=== PATIENT | female | born 1935 | race Caucasian/White ===

== ENCOUNTER → 2016-12-23 | Outpatient (CLI) | payer BC ==
[2016-12-23 13:10] LABS: BLOOD UREA NITROGEN 11 mg/dl (7-18); BUN/CREATININE RATIO 11.3 (10-20); CALCIUM 9.7 mg/dl (8.5-10.1); CARBON DIOXIDE 24 mmol/L (21-32); CHLORIDE 105 mmol/L (98-107); CHOLESTEROL 162 mg/dl (0-200); GLUCOSE 100 mg/dl (70-99); POTASSIUM 3.9 mmol/L (3.5-5.1); SODIUM 139 mmol/L (136-145); TRIGLYCERIDES 187 mg/dl (0-150); VERY LOW DENSITY LIPOPROT CALC 37 mg/dl
[2016-12-23 13:13] LABS: CHOLESTEROL/HDL RATIO 2.9; HDL CHOLESTEROL 55 mg/dl
[2016-12-23 13:34] LABS: ESTIMATED AVERAGE GLUCOSE 126 mg/dl; HA1C FLAG Normal (Normal)
== END | disposition home or self-care (01) ==
LOC: C.LABSPEC 12:39
PROVIDERS: ATTEND Internal Medicine
DX: E78.5 Hyperlipidemia, unspecified (principal); R73.9 Hyperglycemia, unspecified; I10 Essential (primary) hypertension

== ENCOUNTER → 2017-05-19 | Outpatient (CLI) | payer BC | END | disposition home or self-care (01) | LOC: C.PATHSPEC 18:04 | PROVIDERS: ATTEND Internal Medicine | DX: C44.722 Squamous cell carcinoma of skin of right lower limb, including hip (principal); C44.712 Basal cell carcinoma of skin of right lower limb, including hip ==

== ENCOUNTER → 2017-09-08 | Outpatient (CLI) | payer BC | END | disposition home or self-care (01) | LOC: C.LABSPEC 14:47 | PROVIDERS: ATTEND Internal Medicine | DX: Z12.11 Encounter for screening for malignant neoplasm of colon (principal) ==

== ENCOUNTER → 2017-09-28 | Outpatient (CLI) | payer BC ==
[2017-09-28 14:21] LABS: ESTIMATED AVERAGE GLUCOSE 123 mg/dl; HA1C FLAG Normal (Normal)
[2017-09-28 14:33] LABS: ALT/SGPT 36 U/L (12-78); BLOOD UREA NITROGEN 6 mg/dl (7-18); BUN/CREATININE RATIO 6.8 (10-20); CALCIUM 9.3 mg/dl (8.5-10.1); CARBON DIOXIDE 25 mmol/L (21-32); CHLORIDE 107 mmol/L (98-107); CHOLESTEROL 135 mg/dl (0-200); CREATININE 0.88 mg/dl (0.60-1.20); GLUCOSE 88 mg/dl (70-99); POTASSIUM 3.7 mmol/L (3.5-5.1); SODIUM 139 mmol/L (136-145); TRIGLYCERIDES 199 mg/dl (0-150); VERY LOW DENSITY LIPOPROT CALC 40 mg/dl
[2017-09-28 14:35] LABS: ALB/GLOB RATIO 1.1 (0.9-2); ALKALINE PHOSPHATASE 134 U/L (45-117); AST/SGOT 28 U/L (15-37); CHOLESTEROL/HDL RATIO 2.5; HDL CHOLESTEROL 54 mg/dl
== END | disposition home or self-care (01) ==
LOC: C.LABSPEC 12:06
PROVIDERS: ATTEND Internal Medicine
DX: Z00.01 Encounter for general adult medical examination with abnormal findings (principal); R73.9 Hyperglycemia, unspecified; F32.9 Major depressive disorder, single episode, unspecified; E78.5 Hyperlipidemia, unspecified

== ENCOUNTER → 2017-12-02 | Outpatient (CLI) | payer BC ==
[2017-12-02 16:13] LABS: INFLUENZA B ANTIGEN Neg for Influ B (NEG)
== END ==
LOC: C.LABSPEC 15:06
PROVIDERS: ATTEND Internal Medicine
DX: B34.9 Viral infection, unspecified (principal)

== ENCOUNTER 2017-12-12 08:24 | Emergency (ER) | payer BC ==
[2017-12-12 08:32] VITALS: TEMP 36.5; Ht 152.4 cm
[2017-12-12 08:47] VITALS: O2SAT 99
[2017-12-12] MEDS ORDERED: LPT/40 PO (09:00)
[2017-12-12] MEDS ORDERED: METO25TA56 PO (09:00)
[2017-12-12] MEDS ORDERED: LORA-741 PO (09:00)
[2017-12-12] MEDS ORDERED: ASPI81TA28 PO (09:00)
[2017-12-12] MEDS ORDERED: VENL150T33 PO (09:00)
[2017-12-12] MEDS ORDERED: ONDANSETRON INJ 2 MG/ML 2 ML VIAL IV STA (09:03)
[2017-12-12] MEDS ORDERED: SODIUM CHLORIDE 0.9% 1000ML 1,000 ML IV STA (09:03)
--- NOTE | 2017-12-12 09:26 | DIAGNOSTIC IMAGING REPORT ---
CHEST ONE VIEW PORTABLE CLINICAL HISTORY: Fever. Sepsis. COMPARISON STUDY: Chest radiograph January 07, 2017. 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 There is no pneumothorax or pleural effusion. There is no evidence for pulmonary edema. Widening of the right paratracheal stripe is similar to prior exam and accentuated by patient rotation. This is likely due to normal vessels. Cardiac size is within normal limits. No consolidation is identified to suggest pneumonia. IMPRESSION: No acute cardiopulmonary findings. Electronically signed by: Hernandez Valadez M.D. 12/12/2017 9:24 AM Dictated Date/Time: 12/12/2017 9:23 AM
[2017-12-12 09:39] LABS: HEMATOCRIT 38.1 % (37-47); HEMOGLOBIN 13.5 g/dL (12.0-16.0); MEAN CELL VOLUME 87.2 fL (80-100); MEAN CORPUSCULAR HEMOGLOBIN 30.9 pg (25-34); MEAN CORPUSCULAR HGB CONC 35.4 g/dl (32-36); MEAN PLATELET VOLUME 10.3 fL (7.4-10.4); PLATELET COUNT 291 K/uL (130-400); RED CELL DISTRIBUTION WIDTH CV 13.4 % (11.5-14.5); RED CELL DISTRIBUTION WIDTH SD 42.7 fL (36.4-46.3); WHITE BLOOD COUNT 11.48 K/uL (4.8-10.8)
[2017-12-12 09:55] LABS: ALBUMIN 3.8 gm/dl (3.4-5.0); ALT/SGPT 55 U/L (12-78); BLOOD UREA NITROGEN 11 mg/dl (7-18); CALCIUM 9.4 mg/dl (8.5-10.1); CARBON DIOXIDE 22 mmol/L (21-32); CREATININE 0.96 mg/dl (0.60-1.20); GLUCOSE 180 mg/dl (70-99); LIPASE 143 U/L (73-393); POTASSIUM 3.6 mmol/L (3.5-5.1); SODIUM 138 mmol/L (136-145)
[2017-12-12 10:00] LABS: ALKALINE PHOSPHATASE 132 U/L (45-117); AST/SGOT 29 U/L (15-37); BASO % 0.2 %; BASO ABS # 0.02 K/uL (0-0.2); CKMB 1.4 ng/ml (0.5-3.6); EOS ABS # 0.12 K/uL (0-0.5); IG# 0.02 K/uL (0.00-0.02); LYMPH % 12.7 %; LYMPH ABS # 1.46 K/uL (1.2-3.4); MONO % 8.7 %; NEUT % 77.2 %; NEUT ABS # 8.86 K/uL (1.4-6.5); TOTAL PROTEIN 7.7 gm/dl (6.4-8.2)
[2017-12-12 10:01] LABS: INFLUENZA B ANTIGEN Neg for Influ B (NEG)
--- NOTE | 2017-12-12 10:46 | EMERGENCY ROOM VISIT NOTE ---
History Report prepared by Scribe: Kristen Dash Under the Supervision of: Dr. Luis Betts D.O. First contact with patient: 08:58 Chief Complaint: FLU LIKE SX Stated Complaint: SICK JUST HAD THE FLU History of Present Illness The patient is an 82 year old female who presents to the Emergency Room with complaints of persistent flu like symptoms for the past 1 week. She states she was diagnosed with the flu and treated with Tamiflu, which she finished this past Thursday. Last night she developed nausea, diarrhea and the chills. This morning, she experienced more diarrhea and weakness, and her son states when he got to her apartment, the heat was up to 83 and the patient was "bundled up", so he called EMS. The patient states the flu "took a lot out of her" and she still feels weak. She denies any recent vomiting and there has been no blood in her stool. 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 A total of 10 systems reviewed and were otherwise negative. Past Medical & Surgical Medical Problems: (1) Flu (2) Hyperlipidemia (3) Hypertension Social History Smoking Status: Never Smoker Alcohol Use: none Drug Use: none Marital Status: Housing Status: lives alone Occupation Status: retired Current/Historical Medications Scheduled Aspirin (Aspirin Ec), 81 MG PO DAILY Atorvastatin (Lipitor), 40 MG PO DAILY Metoprolol Tartrate (Lopressor) (Lopressor), 25 MG PO BID Venlafaxine Hcl (Venlafaxine Hcl Er), 1 TAB PO DAILY Scheduled PRN Lorazepam (Ativan), 0.5 MG PO Q6H PRN for Anxiety Allergies Coded Allergies: Latex1 -Allergic Contact Dermititis (Unverified Allergy, Intermediate, IRRITATION, 12/12/17) Uncoded Allergies: MEDS? (Allergy, Unknown, 12/01/02) N (Allergy, Unknown, 12/01/02) Physical Exam Vital Signs Date Time Temp Pulse Resp B/P (MAP) Pulse Ox O2 Delivery O2 Flow Rate FiO2 12/12/17 10:23 64 18 202/92 98 Room Air 12/12/17 09:24 59 18 185/91 99 Room Air 12/12/17 08:49 64 12/12/17 08:47 99 Room Air 12/12/17 08:32 36.5 65 18 187/82 97 Room Air Physical Exam CONSTITUTIONAL/VITAL SIGNS: Reviewed / noted above. GENERAL: Non-toxic in appearance. INTEGUMENTARY: Warm, dry, and [place]. HEAD: Normocephalic. EYES: without scleral icterus or trauma. ENT/OROPHARYNX: clear and moist. LYMPHADENOPATHY/NECK: Is supple without lymphadenopathy or meningismus. RESPIRATORY: Lungs clear and equal. CARDIOVASCULAR: Regular rate and rhythm. GI/ABDOMEN: Soft and nontender. No organomegaly or pulsatile mass. No rebound or guarding. Normal bowel sounds. EXTREMITIES: Warm and well perfused. BACK: No CVA tenderness. NEUROLOGICAL: Intact without focal deficits. PSYCHIATRIC: normal affect. MUSCULOSKELETAL: Normally developed with good muscle tone. Medical Decision & Procedures ER Provider Diagnostic Interpretation: Radiology results as stated below per my review and radiologist interpretation: CHEST ONE VIEW PORTABLE CLINICAL HISTORY: Fever. Sepsis. COMPARISON STUDY: Chest radiograph January 07, 2017. 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 There is no pneumothorax or pleural effusion. There is no evidence for pulmonary edema. Widening of the right paratracheal stripe is similar to prior exam and accentuated by patient rotation. This is likely due to normal vessels. Cardiac size is within normal limits. No consolidation is identified to suggest pneumonia. IMPRESSION: No acute cardiopulmonary findings. Electronically signed by: Hernandez Valadez M.D. 12/12/2017 9:24 AM Laboratory Results 12/12/17 09:23 Red Blood Count 4.37, Mean Corpuscular Volume 87.2, Mean Corpuscular Hemoglobin 30.9, Mean Corpuscular Hemoglobin Concent 35.4, Mean Platelet Volume 10.3, Neutrophils (%) (Auto) 77.2, Lymphocytes (%) (Auto) 12.7, Monocytes (%) (Auto) 8.7, Eosinophils (%) (Auto) 1.0, Basophils (%) (Auto) 0.2, Neutrophils # (Auto) 8.86, Lymphocytes # (Auto) 1.46, Monocytes # (Auto) 1.00, Eosinophils # (Auto) 0.12, Basophils # (Auto) 0.02 12/12/17 09:23 Test 12/12/17 09:11 12/12/17 09:23 12/12/17 09:58 12/12/17 10:00 Influenza Type A Antigen Neg for Influ A (NEG) Influenza Type B Antigen Neg for Influ B (NEG) White Blood Count 11.48 K/uL (4.8-10.8) Red Blood Count 4.37 M/uL (4.2-5.4) Hemoglobin 13.5 g/dL (12.0-16.0) Hematocrit 38.1 % (37-47) Mean Corpuscular Volume 87.2 fL (80-100) Mean Corpuscular Hemoglobin 30.9 pg (25-34) Mean Corpuscular Hemoglobin Concent 35.4 g/dl (32-36) Platelet Count 291 K/uL (130-400) Mean Platelet Volume 10.3 fL (7.4-10.4) Neutrophils (%) (Auto) 77.2 % Lymphocytes (%) (Auto) 12.7 % Monocytes (%) (Auto) 8.7 % Eosinophils (%) (Auto) 1.0 % Basophils (%) (Auto) 0.2 % Neutrophils # (Auto) 8.86 K/uL (1.4-6.5) Lymphocytes # (Auto) 1.46 K/uL (1.2-3.4) Monocytes # (Auto) 1.00 K/uL (0.11-0.59) Eosinophils # (Auto) 0.12 K/uL (0-0.5) Basophils # (Auto) 0.02 K/uL (0-0.2) RDW Standard Deviation 42.7 fL (36.4-46.3) RDW Coefficient of Variation 13.4 % (11.5-14.5) Immature Granulocyte % (Auto) 0.2 % Immature Granulocyte # (Auto) 0.02 K/uL (0.00-0.02) Anion Gap 10.0 mmol/L (3-11) Estimated GFR () 63.4 Estimated GFR (Non- 54.7 BUN/Creatinine Ratio 11.5 (10-20) Calcium Level 9.4 mg/dl (8.5-10.1) Total Bilirubin 0.6 mg/dl (0.2-1) Direct Bilirubin 0.1 mg/dl (0-0.2) Aspartate Amino Transf (AST/SGOT) 29 U/L (15-37) Alanine Aminotransferase (ALT/SGPT) 55 U/L (12-78) Alkaline Phosphatase 132 U/L (45-117) Total Creatine Kinase 73 U/L (26-192) Creatine Kinase MB 1.4 ng/ml (0.5-3.6) Creatine Kinase MB Ratio 1.9 (0-3.0) Troponin I 0.021 ng/ml (0-0.045) Total Protein 7.7 gm/dl (6.4-8.2) Albumin 3.8 gm/dl (3.4-5.0) Lipase 143 U/L (73-393) Prothrombin Time 10.9 SECONDS (9.0-12.0) Prothromb Time International Ratio 1.0 (0.9-1.1) Activated Partial Thromboplast Time 28.0 SECONDS (21.0-31.0) Partial Thromboplastin Ratio 1.1 Urine Color YELLOW Urine Appearance CLEAR (CLEAR) Urine pH 7.5 (4.5-7.5) Urine Specific [place] 1.009 (1.000-1.030) Urine Protein NEG (NEG) Urine Glucose (UA) TRACE (NEG) Urine Ketones NEG (NEG) Urine Occult Blood NEG (NEG) Urine Nitrite NEG (NEG) Urine Bilirubin NEG (NEG) Urine Urobilinogen NEG (NEG) Urine Leukocyte Esterase SMALL (NEG) Urine WBC (Auto) 1-5 /hpf (0-5) Urine RBC (Auto) 0-4 /hpf (0-4) Urine Hyaline Casts (Auto) 0 /lpf (0-5) Urine Epithelial Cells (Auto) 10-20 /lpf (0-5) Urine Bacteria (Auto) NEG (NEG) Laboratory results as stated above per my review. Medications Administered Medications (Trade) Dose Ordered Sig/Terrie Route Start Time Stop Time Status Last Admin Dose Admin Sodium Chloride 1,000 ml @ 250 mls/hr Q4H STAT IV 12/12/17 09:03 12/12/17 13:02 12/12/17 09:26 250 MLS/HR Ondansetron HCl (Zofran Inj) 4 mg NOW STAT IV 12/12/17 09:03 12/12/17 09:05 DC 12/12/17 09:26 4 MG ECG Per My Interpretation Indication: weakness Rate (beats per minute): 61 Rhythm: normal sinus Findings: other (no ST elevations, normal axis) Change: Patient's electrocardiogram interpreted by me. ED Course 0900: Previous medical records were reviewed. The patient was evaluated in room B2. A complete history and physical examination was performed. 0903: Zofran 4 mg IV, NSS 1000 ml @ 250 mls/hr IV. 1030: I reevaluated the patient. She is resting comfortably. I discussed her results and discharge instructions and she and her son verbalized complete understanding and agreement. Medical Decision Differential includes acute coronary syndrome, myocardial infarction, CVA, TIA, anemia, infection, pneumonia, UTI, pyelonephritis, poor nutrition, dehydration, electrolyte disturbance,hypoglycemia. This is a 82-year-old female who presents to the ED with a chief complaint of generalized weakness a little nausea and diarrhea this morning. She also reported a slight headache. The patient had flu symptoms last week and was placed on Tamiflu. She finished the course 6 days ago. The patient has had no other symptoms. Her initial blood pressure was elevated 187/82. She does report that she took her metoprolol this morning for her blood pressure. She takes it twice a day. Patient's exam was unremarkable. She has no focal neurologic deficits. She describes no focal weakness or strokelike symptoms. Chest x-ray did not show acute disease, CBC was normal, complete metabolic panel was unremarkable, troponin was negative, lipase was negative, urine did not show infection and flu swab was negative. The patient's blood pressure did remain elevated during her stay. She is in no distress. She was advised to have this rechecked on Thursday by Dr. Flowers. She was advised to return for any new symptoms. She did receive some IV fluids while she was here. She seemed to be feeling better. She is felt to be stable for discharge at this time. Medication Reconcilliation Current Medication List: was personally reviewed by me Blood Pressure Screening Patient's blood pressure: Elevated blood pressure Blood pressure disposition: Referred to PCP Impression Primary Impression: Diarrhea Additional Impression: Hypertension Scribe Attestation The scribe's documentation has been prepared under my direction and personally reviewed by me in its entirety. I confirm that the note above accurately reflects all work, treatment, procedures, and medical decision making performed by me. Departure Information Dispostion Home / Self-Care Referrals Roman Howell M.D. (PCP) Patient Instructions My [facility] Additional Instructions Follow-up with Dr. Maribel Nieves for recheck of your blood pressure. Call Thursday for an appointment. Return to the emergency department for worsening or new symptoms or any concerns. You have been examined and treated today on an emergency basis only. This is not a substitute for, or an effort to provide, complete comprehensive medical care. It is impossible to recognize and treat all injuries or illnesses in a single emergency department visit. It is therefore important that you follow up closely with your doctor. Call as soon as possible for an appointment. Problem Qualifiers
[2017-12-12 10:51] VITALS: BP 190/94; PULSE 70; O2SAT 95
== END 2017-12-12 10:52 | disposition home or self-care (01) ==
LOC: C.EDB 08:25
DX: R19.7 Diarrhea, unspecified (principal); I10 Essential (primary) hypertension; R53.1 Weakness; R11.0 Nausea; E78.5 Hyperlipidemia, unspecified; Z79.82 Long term (current) use of aspirin; Z91.040 Latex allergy status

== ENCOUNTER 2020-08-25 21:31 | Observation (INO) ==
[2020-08-25] MEDS ORDERED: SODIUM CHLORIDE 0.9% 1000ML 1,000 ML IV ONE (22:22)
[2020-08-25 22:43] LABS: Basophils # (auto) 0.02 K/uL (0-0.2); Basophils % (auto) 0.1 %; Eosinophils # (auto) 0.01 K/uL (0-0.5); Eosinophils % (auto) 0.1 %; Hematocrit (blood only) 40.5 % (37-47); Hemoglobin 13.7 g/dL (12.0-16.0); Immature Granulocytes # (auto) 0.06 K/uL (0.00-0.02); Immature Granulocytes % (auto) 0.3 %; Lymphocytes # (auto) 1.08 K/uL (1.2-3.4); Lymphocytes % (auto) 5.4 %; Mean Corpuscular Hemoglobin 29.5 pg (25-34); Mean Corpuscular Hgb Conc 33.8 g/dL (32-36); Mean Corpuscular Volume 87.1 fL (80-100); Mean Platelet Volume 10.8 fL (7.4-10.4); Monocytes # (auto) 1.13 K/uL (0.11-0.59); Monocytes % (auto) 5.7 %; Neutrophils # (auto) 17.66 K/uL (1.4-6.5); Neutrophils % (auto) 88.4 %; Platelet Count 281 K/uL (130-400); RDW Coefficient of Variation 14.2 % (11.5-14.5); RDW Standard Deviation 45.3 fL (36.4-46.3); Red Blood Count 4.65 M/uL (4.2-5.4); White Blood Count 19.96 K/uL (4.8-10.8)
[2020-08-25 22:53] LABS: iSTAT Creatinine 0.7 mg/dl (0.6-1.3); iSTAT Hemoglobin 13.9 g/dl (12.0-16.0); iSTAT Ionized Calcium 1.1 mmol/l (1.12-1.32); iSTAT Potassium 4.2 mmol/L (3.3-5.0)
[2020-08-25 23:01] LABS: Albumin Level 3.3 gm/dl (3.4-5.0); BUN Creatinine Ratio 16.8 (10-20); Creatinine Clr Calc Pharmacy 32.8 ml/min; Est GFR (African American) 61.3; Est GFR (Non-African American) 52.9; Potassium 3.9 mmol/L (3.5-5.1)
[2020-08-25] MEDS ORDERED: IOVERSOL 100ml IV ONE (23:01)
[2020-08-25 23:03] LABS: Albumin Globulin Ratio 0.8 (0.9-2); Bilirubin,Total 0.3 mg/dl (0.2-1); Globulin 4.3 gm/dl (2.5-4.0); Total Protein 7.6 gm/dl (6.4-8.2)
--- NOTE | 2020-08-25 23:28 | Emergency Department Note ---
Impression & Plan Diverticulitis, Abdominal pain, Leukocytosis ED Provider Note NAME: SURJIT NAVARRO AGE: 85 SEX: F : 1935 ARRIVES VIA: Walk-In INFORMANT: Patient ED PROVIDER(S): Simone Rivera DO CHIEF COMPLAINT: Abdominal pain HPI: Patient is an 85-year-old female who presents to ER for abdominal pain. She is been complaining of abdominal pain since earlier today. Lower belly going to the left side. No nausea or vomiting. She had been trying to go the bathroom but has been unsuccessful. She points to pain in her right lower quadrant. She lives at home with her son and [id number]. She does have dementia. History is fairly limited. They deny any urinary symptoms. Last bowel movement was small and yesterday. ROS: Limited secondary to dementia PAST MEDICAL HISTORY:See Below PAST SURGICAL HISTORY:See Below FAMILY HISTORY:See Below SOCIAL HISTORY:See Below HOME MEDICATIONS:See Below ALLERGIES:See Below VITALS:See Below PHYSICAL EXAMINATION: GENERAL: Sitting up in bed, alert, well appearing, well nourished, no distress, non-toxic EYE EXAM: normal conjunctiva. OROPHARYNX: no exudate, no erythema, lips, buccal mucosa, and tongue normal and mucous membranes are moist NECK: supple, no nuchal rigidity, no adenopathy, non-tender LUNGS: Clear to auscultation. Normal chest wall mechanics HEART: no murmurs, S1 normal and S2 normal ABDOMEN: abdomen soft, tender in the lower abdomen, normo-active bowel sounds, no masses, no rebound or guarding. BACK: Back is symmetrical on inspection and there is no deformity, no midline tenderness, no CVA tenderness. SKIN: no rashes and no bruising UPPER EXTREMITIES: upper extremities are grossly normal. LOWER EXTREMITIES: No pitting edema. NEURO EXAM: Awake alert following commands nonfocal pleasantly demented MEDICAL DECISION MAKING: Patient is an 85-year-old female presents ER for lower abdominal pain. IV was established blood work was obtained. Labs show a leukocytosis of 20,000. No significant anemia. BMP along with LFTs bilirubin was unremarkable. Lipase was normal. CT abdomen pelvis shows diverticulitis but no focal abscess. She is acutely tender. She was given IV fluids and IV Zosyn. With her white count, age and CT findings to discuss with the hospitalist for further evaluation and observation for acute diverticulitis with a white count of 20,000 in an 85-year-old female. Triage Nursing notes reviewed. Prior medical records reviewed Vital Signs: reviewed and remarkable for no significant abnormalities Differential diagnosis: Differential diagnoses includes but is not limited to gastritis, peptic ulcer disease, GERD, gallbladder disease, pancreatitis, small bowel obstruction, acute coronary syndrome, pericarditis, ischemic bowel, irritable bowel disease, irritable bowel syndrome, appendicitis, diverticulitis, malignancy, hernia, urinary tract infection, torsion, perforation, trauma, infectious. ER treatment provided: See below Diagnostics interpreted by me: ECG: none Cardiac Monitoring: An order was placed for continuous cardiac monitoring. The monitor shows a rate of 74 with sinus rhythm. Laboratory studies: As stated above and show below. Imaging studies: CT abdomen pelvis shows acute diverticulitis no abscess per stat read Consultation(s): Shaquille with Dr. Gavin Jackson for further evaluation ED COURSE: Procedures: none Critical Care: None Past Med/Surg History Family History Mother Heart disease Father Stroke Social History Smoking Status: Never smoker Feels Safe at Home: Yes Allergies Allergies Allergy/AdvReac Type Severity Reaction Status Date / Time latex Allergy Intermediate SKIN Verified 08/25/20 23:02 IRRITATION celecoxib [From Celebrex] Allergy Unknown ON MED LIST Verified 08/25/20 23:02 codeine Allergy Unknown ON MED LIST Verified 08/25/20 23:02 doxycycline Allergy Unknown ON MED LIST Verified 08/25/20 23:02 ketorolac Allergy Unknown ON MED LIST Verified 08/25/20 23:02 levofloxacin [From Levaquin] Allergy Unknown ON MED LIST Verified 08/25/20 23:02 metronidazole [From Flagyl] Allergy Unknown ON MED LIST Verified 08/25/20 23:02 Sulfa (Sulfonamide Allergy Unknown ON MED LIST Verified 08/25/20 23:02 Antibiotics) Home Meds Home Medications Medication Instructions Recorded Confirmed aspirin 81 mg tablet,delayed 81 mg PO QAM 07/03/20 08/25/20 release atorvastatin 40 mg tablet 40 mg PO QDL 07/03/20 08/25/20 donepezil 5 mg tablet 5 mg PO QAM 07/03/20 08/25/20 lorazepam 0.5 mg tablet 0.5 mg PO QID tab 07/03/20 08/25/20 metoprolol tartrate 25 mg tablet 25 mg PO AMHS tab 07/03/20 08/25/20 venlafaxine 150 mg 150 mg PO QAM 07/03/20 08/25/20 capsule,extended release 24 hr Previous Rx's Medication Instructions Recorded mirtazapine 15 mg tablet 15 mg PO HS #30 tab 07/03/20 Results & Data (ED) Vital Signs Vital Signs - 24 hr 08/25/20 21:52 08/25/20 23:04 08/25/20 23:37 Temperature 36.7 C Temperature Source Oral Pulse Rate 66 Pulse Rate [Finger] 70 Respiratory Rate 18 20 Respiratory Effort / Characteristics Non-Labored Spontaneous Non-Labored Spontaneous Respiratory Depth Normal Normal Blood Pressure 147/77 H Blood Pressure [Right Arm] 142/72 H Blood Pressure Mean 100 Blood Pressure Mean [Right Arm] 95 Pulse Oximetry 97 96 99 Oxygen Delivery Method Room Air Room Air Room Air Sepsis Recent Fever Within 48 Hours No Sepsis New/Unexplained Change in Mental Status No Sepsis Action Taken by Nursing No Action Required 08/26/20 00:05 Temperature Temperature Source Pulse Rate Pulse Rate [Finger] 86 Respiratory Rate 20 Respiratory Effort / Characteristics Respiratory Depth Blood Pressure Blood Pressure [Right Arm] 186/72 H Blood Pressure Mean Blood Pressure Mean [Right Arm] 110 Pulse Oximetry 97 Oxygen Delivery Method Sepsis Recent Fever Within 48 Hours Sepsis New/Unexplained Change in Mental Status Sepsis Action Taken by Nursing Laboratory Data Result diagrams: 08/25/20 22:28 08/25/20 22:28 Lab Results 08/25/20 08/25/20 08/25/20 Range/Units 22:28 22:28 22:41 WBC 19.96 H (4.8-10.8) K/uL RBC 4.65 (4.2-5.4) M/uL Hgb 13.7 (12.0-16.0) g/dL POC Hgb 13.9 (12.0-16.0) g/dl Hct 40.5 (37-47) % POC Hct 41 (37-47) % MCV 87.1 (80-100) fL MCH 29.5 (25-34) pg MCHC 33.8 (32-36) g/dL RDW Std Deviation 45.3 (36.4-46.3) fL RDW Coeff of Rosangela 14.2 (11.5-14.5) % Plt Count 281 (130-400) K/uL MPV 10.8 H (7.4-10.4) fL Immature Gran % (Auto) 0.3 % Neut % (Auto) 88.4 % Lymph % (Auto) 5.4 % [place] % (Auto) 5.7 % Eos % (Auto) 0.1 % Baso % (Auto) 0.1 % Neut # (Auto) 17.66 H (1.4-6.5) K/uL Lymph # (Auto) 1.08 L (1.2-3.4) K/uL [place] # (Auto) 1.13 H (0.11-0.59) K/uL Eos # (Auto) 0.01 (0-0.5) K/uL Baso # (Auto) 0.02 (0-0.2) K/uL Immature Gran # (Auto) 0.06 H (0.00-0.02) K/uL POC Sodium 136 (135-144) mmol/L Sodium 137 (136-145) mmol/L POC Potassium 4.2 (3.3-5.0) mmol/L Potassium 3.9 (3.5-5.1) mmol/L POC Chloride 105 (101-112) mmol/L Chloride 107 (98-107) mmol/L Carbon Dioxide 22 (21-32) mmol/L POC Total CO2 20 L (24-31) mmol/L Anion Gap 9.0 (3-11) POC Anion Gap 16.0 (16-25) mmol/L POC BUN 20 H (7-18) mg/dl BUN 16 (7-18) mg/dl Creatinine 0.97 (0.6-1.2) mg/dl POC Creatinine 0.7 (0.6-1.3) mg/dl Est Cr Clr Drug Dosing 32.8 ml/min Est GFR ( Amer) 61.3 Est GFR (Non-Af Amer) 52.9 BUN/Creatinine Ratio 16.8 (10-20) Glucose 150 H (70-99) mg/dl POC Glucose (other) 152 H (70-99) mg/dl Calcium 9.0 (8.5-10.1) mg/dl POC Ioniz Calcium [place] 1.10 L (1.12-1.32) mmol/l Total Bilirubin 0.3 (0.2-1) mg/dl AST 28 (15-37) U/L ALT 33 (12-78) U/L Alkaline Phosphatase 172 H (45-117) U/L Total Protein 7.6 (6.4-8.2) gm/dl Albumin 3.3 L (3.4-5.0) gm/dl Globulin 4.3 H (2.5-4.0) gm/dl Albumin/Globulin Ratio 0.8 L (0.9-2) Lipase 103 (73-393) U/L Specimen Hemolysis Urine Color Urine Appearance (Clear) Urine pH (4.5-7.5) Ur Specific [place] (1.000-1.030) Urine Protein (Negative) Urine Glucose (UA) (Negative) Urine Ketones (Negative) Urine Blood (Negative) Urine Nitrite (Negative) Urine Bilirubin (Negative) Urine Urobilinogen (Negative) Ur Leukocyte Esterase (Negative) 08/25/20 Range/Units 23:35 WBC (4.8-10.8) K/uL RBC (4.2-5.4) M/uL Hgb (12.0-16.0) g/dL POC Hgb (12.0-16.0) g/dl Hct (37-47) % POC Hct (37-47) % MCV (80-100) fL MCH (25-34) pg MCHC (32-36) g/dL RDW Std Deviation (36.4-46.3) fL RDW Coeff of Rosangela (11.5-14.5) % Plt Count (130-400) K/uL MPV (7.4-10.4) fL Immature Gran % (Auto) % Neut % (Auto) % Lymph % (Auto) % [place] % (Auto) % Eos % (Auto) % Baso % (Auto) % Neut # (Auto) (1.4-6.5) K/uL Lymph # (Auto) (1.2-3.4) K/uL [place] # (Auto) (0.11-0.59) K/uL Eos # (Auto) (0-0.5) K/uL Baso # (Auto) (0-0.2) K/uL Immature Gran # (Auto) (0.00-0.02) K/uL POC Sodium (135-144) mmol/L Sodium (136-145) mmol/L POC Potassium (3.3-5.0) mmol/L Potassium (3.5-5.1) mmol/L POC Chloride (101-112) mmol/L Chloride (98-107) mmol/L Carbon Dioxide (21-32) mmol/L POC Total CO2 (24-31) mmol/L Anion Gap (3-11) POC Anion Gap (16-25) mmol/L POC BUN (7-18) mg/dl BUN (7-18) mg/dl Creatinine (0.6-1.2) mg/dl POC Creatinine (0.6-1.3) mg/dl Est Cr Clr Drug Dosing ml/min Est GFR ( Amer) Est GFR (Non-Af Amer) BUN/Creatinine Ratio (10-20) Glucose (70-99) mg/dl POC Glucose (other) (70-99) mg/dl Calcium (8.5-10.1) mg/dl POC Ioniz Calcium [place] (1.12-1.32) mmol/l Total Bilirubin (0.2-1) mg/dl AST (15-37) U/L ALT (12-78) U/L Alkaline Phosphatase (45-117) U/L Total Protein (6.4-8.2) gm/dl Albumin (3.4-5.0) gm/dl Globulin (2.5-4.0) gm/dl Albumin/Globulin Ratio (0.9-2) Lipase (73-393) U/L Specimen Hemolysis Urine Color Yellow Urine Appearance Clear (Clear) Urine pH 6.5 (4.5-7.5) Ur Specific [place] 1.033 H (1.000-1.030) Urine Protein Negative (Negative) Urine Glucose (UA) Trace H (Negative) Urine Ketones Negative (Negative) Urine Blood Negative (Negative) Urine Nitrite Negative (Negative) Urine Bilirubin Negative (Negative) Urine Urobilinogen Negative (Negative) Ur Leukocyte Esterase Negative (Negative) Administered Medications Discontinued Medications Sodium Chloride (Nss 1000ml) 1,000 mls @ 999 mls/hr IV .Q1H1M ONE Stop: 08/25/20 23:22 Last Infusion: 08/25/20 23:38 Dose: 0 mls/hr Documented by: [id number] Admin: 08/25/20 22:37 Dose: 999 mls/hr Documented by: [id number] Piperacillin Sod/Tazobactam Sod (Zosyn) 4.5 gm in 120 mls @ 240 mls/hr IV NOW ONE Stop: 08/25/20 23:59 Last Infusion: 08/26/20 00:15 Dose: 0 mls/hr Documented by: [id number] Admin: 08/25/20 23:42 Dose: 240 mls/hr Documented by: [id number] Ioversol (Ioversol 100ml) 93 ml IV ONCE ONE Stop: 08/25/20 23:02 Last Admin: 08/25/20 23:01 Dose: 93 ml Documented by: [id number] Discharge Plan Visit Data Chief Complaint: Constipation Stated Complaint: ABD PAIN, CONSTIPATION ED Provider: Simone Rivera Discharge Problem: Diverticulitis, Abdominal pain, Leukocytosis Forms Stand Alone Forms: [facility] [employer] Prescriptions Prescriptions: No Action metoprolol tartrate 25 mg tablet 25 mg PO AMHS RF: 0 aspirin 81 mg tablet,delayed release (DR/EC) 81 mg PO QAM RF: 0 atorvastatin 40 mg tablet 40 mg PO QDL RF: 0 venlafaxine 150 mg capsule,extended release 24hr 150 mg PO QAM RF: 0 donepezil 5 mg tablet 5 mg PO QAM RF: 0 lorazepam 0.5 mg tablet 0.5 mg PO QID RF: 0 mirtazapine 15 mg tablet 15 mg PO HS Qty: 30 RF: 2 Discharge Problem: Abdominal pain Qualifiers: Abdominal location: unspecified location Qualified Code(s): R10.9 - Unspecified abdominal pain Leukocytosis Qualifiers: Leukocytosis type: unspecified Qualified Code(s): D72.829 - Elevated white blood cell count, unspecified
[2020-08-25] MEDS ORDERED: PIPERACILL/TAZOBAC CONSULT ACTIVE PRN (23:30)
[2020-08-25] MEDS ORDERED: PIPERACILLIN/TAZOBACTAM 4.5 GM/120 ML BAG IV ONE (23:30)
[2020-08-25 23:43] LABS: Appearance Urine Clear (Clear); Bilirubin Urine Negative (Negative); Blood Urine Negative (Negative); Color Urine Yellow; Glucose Urine UA Trace (Negative); Ketones Urine Negative (Negative); Leukocyte Esterase Urine Negative (Negative); Nitrite Urine Negative (Negative); Protein Urine Negative (Negative); Specific Gravity Urine 1.033 (1.000-1.030); Urobilinogen Urine Negative (Negative); pH Urine 6.5 (4.5-7.5)
--- NOTE | 2020-08-26 00:43 | History & Physical Report ---
Date of Service August 26, 2020 Assessment & Plan (1) Diverticulitis: Oksana Dietz is an 85-year-old female with a past medical history of dementia, hypertension, and hyperlipidemia with one episode of diverticulitis 20 years ago who presents with 1 day of left lower abdominal pain and 2 weeks of decreased appetite. Left lower quadrant pain due to diverticulitis Leukocytosis to 19.96, afebrile CT ABDOMEN & PELVIS With Contrast: Abnormal wall thickening in the proximal sigmoid colon with edema in the surrounding fat. Diverticula are seen in the region is very likely represents diverticulitis. No evidence of focal drainable abscess or extraluminal air. Small amount of free fluid. No evidence of bowel obstruction. There was a normal appendix. -Received Zosyn on admission Continue Zosyn CBC, BMP daily Clear liquid diet for partial bowel rest, IV fluids as below Tylenol for pain control, avoid narcotics at this time. Patient in no acute distress due to pain No fever, respiratory symptoms, sick exposure, diarrhea, or other symptoms to indicate COVID testing. Progressive dementia Improved following discontinuation of risperidone Seen by neurology in June, recommended continuing donepezil Have deferred a trial of levodopa/dopamine agonist at time of last assessment due to possibility of neuroleptic induced parkinsonism, although differential included Lewy body dementia Continue mirtazapine 15 mg p.o. nightly Continue donepezil 5 mg every morning Patient with history of sundowning, per family does well with redirection. Counseled that this may worsen while in the hospital Anxiety Continue venlafaxine 150 mg every morning, Remeron as above - Pt on lorazepam 0.5 mg p.o. 4 times daily scheduled, counseled that this can worsen confusion and dementia. We will continue as 3 times daily at this time given underlying likely dependence with additional as needed Hypertension/hyperlipidemia Continue aspirin daily Continue atorvastatin 40 mg daily Continue metoprolol 25 mg tartrate twice daily DVT prophylaxis: Heparin twice daily FEN GI: NSS 80 cc/h, clear liquids Disposition: Medical/surgical CODE STATUS: DNR/DNI, would want trial of intubation for decline in respiratory status but no intubation in the setting of a cardiac arrest. Confirmed with family at bedside (2) Abdominal pain: (3) Dementia: (4) Parkinsonism: History of Present Illness Chief Complaint: Left sided abdominal pain Primary Care Provider: Roman Nieves MD Oksana Dietz is an 85-year-old female with a past medical history of dementia, hypertension, and hyperlipidemia with one episode of diverticulitis 20 years ago who presents with 1 day of left lower abdominal pain and 2 weeks of decreased appetite. Patient's history is limited by dementia. History is taken with the assistance of her son at the bedside. They report that she was otherwise in her usual state of health when she developed left lower quadrant pain 1 day ago. She has also had some constipation, had a small bowel movement yesterday and last was several days prior to this. She has not had any blood in her bowel movements. She has not had any fever, shortness of breath, difficulty breathing, cough, change in sense of smell or taste, or shaking chills. She has been living at home with her son for the last 6 months and has not gone out, they have been careful to isolate for Covid and there have been no sick family members in the home. She last had a colonoscopy many years ago, her son does not know when she had one or what the results were. Patient reports that she is "not hungry ". Her son reports it has been hard to get her to eat for about 2 weeks, other than the decreased appetite, abdominal pain, and constipation they have not noticed any other symptoms. Patient reports she does not have pain on the right or upper side of her belly. Denies dysuria or change in urination. Her son reports she has not had any mental status change or urinary change. Patient has a medical history of parkinsonism, per family this was while she was on risperidone which was discontinued after which symptoms have greatly improved. Medical history: Reviewed Medications: Reviewed Surgical history: Reviewed in EMR Allergies: Reviewed Social: Denies alcohol, tobacco, and recreational drug use. Moved in with her son 6 months ago due to concern for living at home alone with dementia. No sick contacts at home. CODE STATUS: DNR/DNI. Would want a trial of intubation for declining respiratory status, but not in the setting of cardiac arrest. Allergies Allergy/AdvReac Type Severity Reaction Status Date / Time latex Allergy Intermediate SKIN Verified 08/25/20 23:02 IRRITATION celecoxib [From Celebrex] Allergy Unknown ON MED LIST Verified 08/25/20 23:02 codeine Allergy Unknown ON MED LIST Verified 08/25/20 23:02 doxycycline Allergy Unknown ON MED LIST Verified 08/25/20 23:02 ketorolac Allergy Unknown ON MED LIST Verified 08/25/20 23:02 levofloxacin [From Levaquin] Allergy Unknown ON MED LIST Verified 08/25/20 23:02 metronidazole [From Flagyl] Allergy Unknown ON MED LIST Verified 08/25/20 23:02 Sulfa (Sulfonamide Allergy Unknown ON MED LIST Verified 08/25/20 23:02 Antibiotics) Home Medications Home Medications Medication Instructions Recorded Confirmed Type aspirin 81 mg tablet,delayed 81 mg PO QAM 07/03/20 08/25/20 History release atorvastatin 40 mg tablet 40 mg PO QDL 07/03/20 08/25/20 History donepezil 5 mg tablet 5 mg PO QAM 07/03/20 08/25/20 History lorazepam 0.5 mg tablet 0.5 mg PO QID tab 07/03/20 08/25/20 History metoprolol tartrate 25 mg tablet 25 mg PO [facility] tab 07/03/20 08/25/20 History mirtazapine 15 mg tablet 15 mg PO HS #30 tab 07/03/20 08/25/20 Rx venlafaxine 150 mg 150 mg PO QAM 07/03/20 08/25/20 History capsule,extended release 24 hr Past Med/Surg History Family History Mother Heart disease Father Stroke Social History Smoking Status: Unknown if ever smoked Hx Alcohol Use: No Hx Substance Use: No Communication Ability: dementia Beliefs That Will Affect Care: None Current Living Situation: Family Current Living Situation Comment: Son and daughter in law Other Information That Helps Us Care for You: No Feels Safe at Home: Yes Safety Concerns: Feels Safe At This Time Assistive Devices: Glasses Review of Systems Review of Systems: All systems reviewed & are unremarkable except as noted in HPI & below Physical Exam Physical Exam: General: Alert, cooperative. Oriented to name and building ("hospital "). Not oriented to month, day, or year. HEENT: Atraumatic, normocephalic. Pupils equal and responsive to light and accommodation. Visual acuity grossly intact, hearing grossly intact. Pulm: CTAB A&P. -wheezes, -rales, -rhonchi. Symmetrical chest rise. No increase work of breathing. No respiratory distress. Cardiac: RRR, -mrg. Radial pulses intact and symmetrical. Abdominal: Left lower quadrant tender to palpation without radiation. No right lower quadrant or right upper quadrant tenderness. No CVA tenderness. Bowel sounds increased. Extremities: No lower extremity edema. Ankle dorsiflexion/plantar flexion and upholsterer inside strength grossly intact with symmetrical strength. Sensation intact to soft touch in fingers and toes. PT pulse intact and symmetrical. Results & Data Results & Data ([facility]) Vital Signs (Past 12 Hours) Vital Signs Temp Pulse Pulse Resp BP BP Pulse Ox 08/25/20 23:37 99 08/25/20 23:04 70 20 142/72 H 96 08/25/20 21:52 36.7 C 66 18 147/77 H 97 Supervising Physician Co-Signing Physician Notes Attending addendum: I have physically seen this patient, have supervised the medical residents activities, and agree with the H&P unless as otherwise noted. Assessment and Plan: Proximal sigmoid colon diverticulitis- Clear liquid diet Zosyn 4.5 g IV every 8 hours Zofran 4 mg IV every 6 hours as needed NSS at 100 mils per hour Acetaminophen 650 mg p.o. every 6 hours mild pain or temperature Follow serial CBC with differential and chemistry profile Dementia/depression/anxiety- Continue mirtazapine, donepezil, venlafaxine and lorazepam. Monitor for Hypertension- Continue aspirin and metoprolol tartrate with hold parameters Hyperlipidemia- Continue atorvastatin Remaining orders and notations as noted Resident Activity Tracking Resident Involvement: Resident Care Provided Care Provided: Adult Hospital Medicine (1) Abdominal pain Abdominal location: unspecified location Qualified Code(s): R10.9 - Unspecified abdominal pain
[2020-08-26] MEDS ORDERED: ACETAMINOPHEN 325 MG TAB PO STA (01:00)
[2020-08-26] MEDS ORDERED: ACETAMINOPHEN 325 MG TAB PO PRN (01:52)
[2020-08-26] MEDS ORDERED: PIPERACILL/TAZOBAC CONSULT ACTIVE PRN (01:52)
[2020-08-26] MEDS ORDERED: LORazepam 0.5 MG TAB PO PRN ×2 (01:52→11:33)
[2020-08-26] MEDS: SODIUM CHLORIDE 0.9% 1000ML 1,000 ML IV SCH ×2 (02:33→14:06)
[2020-08-26] MEDS ORDERED: INFLUENZA ADMINISTRATION CHARGE ONE (03:15)
[2020-08-26] MEDS ORDERED: INFLUENZA VIRUS QUAD VACCINE 0.5 ML SYR IM ONE (03:15)
[2020-08-26] MEDS: PIPERACILLIN/TAZOBACTAM 3.375 GM in DEXTROSE 5% 100 ML IV SCH ×3 (06:20→22:27)
--- NOTE | 2020-08-26 07:59 | CT Scan Report ---
CT abd pelvis IV con only CLINICAL HISTORY: Lower abdominal pain. COMPARISON STUDY: None. TECHNIQUE: The patient was scanned in a dynamic helical fashion during intravenous administration of 93 cc of Optiray 320 A dose lowering technique was utilized adhering to the principles of ALARA. CT DOSE: 287.87 mGy.cm FINDINGS: Lower chest: There are mild dependent atelectatic changes. There is a [id number] hiatal hernia Liver: There are hypodense hepatic lesions are pretty water attenuation. The largest measures 41 mm. These likely represent cysts. There is also an indeterminate 8 mm subcapsular hypodensity within the right hepatic lobe. This is of doubtful acute clinical significance. Gallbladder: Unremarkable. Spleen: Normal in size and attenuation. Pancreas: Unremarkable. Adrenal glands: Unremarkable. Kidneys: There is symmetric renal cortical enhancement. The kidneys are normal in size without hydron ephrosis. Bowel: There are no transition zones to indicate bowel obstruction. There is extensive colonic divert iculosis. There is infiltration of the pericolic diverticular fat within the sigmoid consistent with acute diverticulitis. The appendix appears normal. Peritoneum: There is no free air. There is a small amount of pelvic ascites. Vasculature: The abdominal aorta is normal in course and caliber. Adenopathy: None. Pelvic viscera: The uterus appears surgically absent Skeletal structures: No destructive osseous lesions are seen. IMPRESSION: 1. No evidence of bowel obstruction. No evidence of free air 2. Normal appendix 3. Acute sigmoid diverticulitis. There is a small amount of perisigmoid fluid, but no walled off le[place] ections to indicate a drainable peridiverticular abscess. ACT 112: Negative or not required by law. Electronically signed by: Oneal Conklin M.D. 08/26/2020 7:58 AM
[2020-08-26] MEDS: ASPIRIN 81 MG ECTAB PO SCH (08:07)
[2020-08-26] MEDS: HEPARIN SOD 5,000 UNIT/0.5 ML VIAL SQ SCH ×2 (08:07→20:16)
[2020-08-26] MEDS: METOPROLOL TARTRATE 25 MG TAB PO SCH ×2 (08:08→20:15)
[2020-08-26] MEDS: VENLAFAXINE HCL XR 150 MG CAPXR PO SCH (08:08)
[2020-08-26] MEDS: DONEPEZIL HCL 5 MG TAB PO SCH (08:08)
[2020-08-26] MEDS: ATORVASTATIN 40 MG TAB PO SCH (11:24)
--- NOTE | 2020-08-26 15:07 | Hospitalist Progress Note ---
Date of Service August 26, 2020 Assessment & Plan (1) Diverticulitis: Oksana Dietz is an 85-year-old female with a past medical history of dementia, hypertension, and hyperlipidemia with one episode of diverticulitis 20 years ago who presents with 1 day of left lower abdominal pain and 2 weeks of decreased appetite. Acute Diverticulitis - LLQ abdominal pain on exam, WBC 20 with neutrophilic dominance and left shift - CT Abd/Pelv showing diverticulitis without evidence of abscess or perforation - Continue Zosyn; plan to transition to Cipro/Flagyl in 1-2 days if patient improves - Clear liquid diet for partial bowel rest, soft IVFs NSS 80cc/hr - PRN Tylenol for pain Severe Dementia - A+O to self only and h/o - Continue home mirtazapine 15 mg PO QHS, Donepezil 5 mg PO QAM - Continue donepezil 5 mg every morning Anxiety - Continue venlafaxine 150 mg PO QAM and Ativan 0.5 mg PO QID - Remeron as above Hypertension/hyperlipidemia - Continue aspirin daily - Continue atorvastatin 40 mg daily - Continue metoprolol 25 mg tartrate twice daily DVT ppx: Heparin 5000u SQ Q12H FEN GI: Clear liquids, NSS 80cc/hr CODE STATUS: DNR/DNI, would want trial of intubation for decline in respiratory status but no intubation in the setting of a cardiac arrest. Confirmed with family at bedside Dispo: med/surg (2) Abdominal pain: (3) Dementia: (4) Parkinsonism: Admission and Anticipated Discharge Date Admission Date: August 26, 2020 Supervising Physician Co-Signing Physician Notes I also saw the patient and confirmed sharpe portions of the history and exam. I agree with the impression and plan in the resident documentation. EXAM She is pleasant. Answers simple questions appropriately. She is noted to have dementia. NAD. 106/67, 59, 16, 37.2, 96% room air. ABD with mild LLQ tenderness. No rebound. No guarding. DATA WBC 19.66 HgB 13.7 BUN 16, 0.97 A/P Diverticulitis Dementia HTN I agree with the plan as noted above. Subjective NAEO. Reports that LLQ abdominal pain is mildly improved since admission. Denies fever/chills, chest pain/palpitations, SOB, N/V, diarrhea. Of not, history li mited by severe dementia. Review of Systems Review of Systems: Pertinent positives and negatives mentioned in HPI Physical Exam Constitutional: WD/WN, vitals as above Respiratory: normal respiratory effort, lungs clear to auscultation Cardiovascular: RRR, no murmur, no edema Gastrointestinal (Abdomen): Inspection/Auscultation: abdomen normal to inspection and normal bowel sounds Percussion/Palpation: + abdomen tender (moderate LLQ TTP) and abdomen soft; no guarding Skin: no rashes, warm and dry Psychiatric: Orientation: alert, oriented to person and cooperative; + not oriented to place and + not oriented to time Results & Data Results & Data ([facility]) Vital Signs (Past 12 Hours) Vital Signs Temp Pulse Resp BP Pulse Ox 08/26/20 14:02 37.2 C 59 L 16 106/67 96 08/26/20 07:45 36.9 C 60 20 120/71 98 (1) Abdominal pain Abdominal location: unspecified location Qualified Code(s): R10.9 - Unspecified abdominal pain
[2020-08-26] MEDS ORDERED: LORazepam 1 MG TAB PO PRN (17:37)
[2020-08-26] MEDS: MIRTAZAPINE TAB 15 MG TAB PO SCH (20:15)
--- NOTE | 2020-08-27 00:20 | Billing Data ---
Date of Service August 27, 2020 Coding Level of Care Code 43036 Initial Inpt Care Lvl 2
[2020-08-27] MEDS: SODIUM CHLORIDE 0.9% 1000ML 1,000 ML IV SCH (02:23)
[2020-08-27] MEDS: PIPERACILLIN/TAZOBACTAM 3.375 GM in DEXTROSE 5% 100 ML IV SCH (06:02)
[2020-08-27 07:44] LABS: Basophils # (auto) 0.02 K/uL (0-0.2); Basophils % (auto) 0.2 %; Eosinophils # (auto) 0.22 K/uL (0-0.5); Eosinophils % (auto) 2.4 %; Hematocrit (blood only) 33.9 % (37-47); Hemoglobin 11.6 g/dL (12.0-16.0); Immature Granulocytes # (auto) 0.02 K/uL (0.00-0.02); Immature Granulocytes % (auto) 0.2 %; Lymphocytes # (auto) 1.98 K/uL (1.2-3.4); Lymphocytes % (auto) 21.5 %; Mean Corpuscular Hemoglobin 29.5 pg (25-34); Mean Corpuscular Hgb Conc 34.2 g/dL (32-36); Mean Corpuscular Volume 86.3 fL (80-100); Mean Platelet Volume 10.7 fL (7.4-10.4); Monocytes % (auto) 7.6 %; Neutrophils # (auto) 6.28 K/uL (1.4-6.5); Neutrophils % (auto) 68.1 %; Platelet Count 226 K/uL (130-400); RDW Coefficient of Variation 14.6 % (11.5-14.5); RDW Standard Deviation 46.2 fL (36.4-46.3); Red Blood Count 3.93 M/uL (4.2-5.4); White Blood Count 9.22 K/uL (4.8-10.8)
[2020-08-27 08:26] LABS: BUN Creatinine Ratio 8.1 (10-20); Calcium 8.5 mg/dl (8.5-10.1); Creatinine Clr Calc Pharmacy 40.7 ml/min; Est GFR (African American) 78.6; Est GFR (Non-African American) 67.8; Potassium 3.2 mmol/L (3.5-5.1)
[2020-08-27] MEDS: VENLAFAXINE HCL XR 150 MG CAPXR PO SCH (09:43)
[2020-08-27] MEDS: ASPIRIN 81 MG ECTAB PO SCH (09:43)
[2020-08-27] MEDS: METOPROLOL TARTRATE 25 MG TAB PO SCH ×2 (09:43→20:21)
[2020-08-27] MEDS: DONEPEZIL HCL 5 MG TAB PO SCH (09:43)
[2020-08-27] MEDS: HEPARIN SOD 5,000 UNIT/0.5 ML VIAL SQ SCH ×2 (09:44→20:21)
[2020-08-27] MEDS: POTASSIUM CHLORIDE CRTAB 20 MEQ TABCR PO SCH (09:46)
[2020-08-27] MEDS: ATORVASTATIN 40 MG TAB PO SCH (11:41)
[2020-08-27] MEDS: AMOXICILLIN/CLAVULANATE 875 MG TAB PO SCH ×2 (13:51→20:21)
[2020-08-27] MEDS: LORazepam 1 MG TAB PO PRN ×2 (16:49→20:21)
--- NOTE | 2020-08-27 17:28 | Hospitalist Progress Note ---
Date of Service August 27, 2020 Assessment & Plan (1) Diverticulitis: Oksana Dietz is an 85-year-old female with a past medical history of dementia, hypertension, and hyperlipidemia with one episode of diverticulitis 20 years ago who was admitted to [facility] on 08/26/2020 for acute diverticulitis Acute Diverticulitis - LLQ abdominal pain on exam, WBC 20 with neutrophilic dominance and left shift - CT Abd/Pelv showing diverticulitis without evidence of abscess or perforation - Zosyn transitioned to Augmentin 875/125 PO TID, plan for total of 10 days abx - Diet advanced to regular today - IVFs discontinued - PRN Tylenol for pain Severe Dementia - A+O to self only and h/o - Continue home mirtazapine 15 mg PO QHS, Donepezil 5 mg PO QAM - Continue donepezil 5 mg every morning Anxiety - Continue venlafaxine 150 mg PO QAM and Ativan 0.5 mg PO QID - Remeron as above Hypertension/hyperlipidemia - Continue aspirin daily - Continue atorvastatin 40 mg daily - Continue metoprolol 25 mg tartrate twice daily DVT ppx: Heparin 5000u SQ Q12H FEN GI: Clear liquids, NSS 80cc/hr CODE STATUS: DNR/DNI, would want trial of intubation for decline in respiratory status but no intubation in the setting of a cardiac arrest. Confirmed with family at bedside Dispo: med/surg, tentative discharge tomorrow if tolerating regular diet and medically stable (2) Abdominal pain: (3) Dementia: (4) Parkinsonism: Admission and Anticipated Discharge Date Admission Date: August 26, 2020 Supervising Physician Co-Signing Physician Notes I personally examined the patient and verified all sharpe points of history and exam, discussed case, and agree with decision making with Dr Flor. belly seems to be feeling ok vitals noted nad heent nc at mmm abd soft nd mild LLQ tender no guarding no rebound diverticulitis - advance diet, trial PO abx. if all goes well then home tomorrow otherwise as above Subjective NAEO. Reports that LLQ abdominal pain continues to improve since admission. Denies fever/chills, chest pain/palpitations, SOB, N/V, diarrhea. Of note, history limited by severe dementia. Review of Systems Review of Systems: Pertinent positives and negatives mentioned in HPI Physical Exam Constitutional: WD/WN, vitals as above Respiratory: normal respiratory effort, lungs clear to auscultation Cardiovascular: RRR, no murmur, no edema Gastrointestinal (Abdomen): Inspection/Auscultation: abdomen normal to inspection and normal bowel sounds Percussion/Palpation: + abdomen tender (moderate LLQ TTP) and abdomen soft; no guarding Skin: no rashes, warm and dry Psychiatric: Orientation: alert, oriented to person and cooperative; + not oriented to place and + not oriented to time Results & Data Results & Data ([facility]) Vital Signs (Past 12 Hours) Vital Signs Temp Pulse Resp BP Pulse Ox 08/27/20 16:57 36.8 C 60 18 148/81 H 97 08/27/20 10:04 36.6 C 72 18 165/85 H 97 Resident Activity Tracking Resident Involvement: Resident Care Provided Care Provided: Adult Hospital Medicine (1) Abdominal pain Abdominal location: unspecified location Qualified Code(s): R10.9 - Unspecified abdominal pain
--- NOTE | 2020-08-27 19:47 | Billing Data ---
Date of Service August 27, 2020 Coding Level of Care Code 06480 Subseq Hosp Care Lvl 2
[2020-08-27] MEDS: MIRTAZAPINE TAB 15 MG TAB PO SCH (20:21)
[2020-08-28 07:59] LABS: Basophils # (auto) 0.02 K/uL (0-0.2); Basophils % (auto) 0.3 %; Eosinophils # (auto) 0.44 K/uL (0-0.5); Eosinophils % (auto) 5.6 %; Hemoglobin 12.3 g/dL (12.0-16.0); Immature Granulocytes # (auto) 0.01 K/uL (0.00-0.02); Immature Granulocytes % (auto) 0.1 %; Lymphocytes # (auto) 1.71 K/uL (1.2-3.4); Lymphocytes % (auto) 21.7 %; Mean Corpuscular Hemoglobin 28.4 pg (25-34); Mean Corpuscular Hgb Conc 32.4 g/dL (32-36); Mean Corpuscular Volume 87.8 fL (80-100); Mean Platelet Volume 10.5 fL (7.4-10.4); Monocytes % (auto) 10.2 %; Neutrophils % (auto) 62.1 %; Platelet Count 253 K/uL (130-400); RDW Coefficient of Variation 14.7 % (11.5-14.5); RDW Standard Deviation 47.6 fL (36.4-46.3); Red Blood Count 4.33 M/uL (4.2-5.4); White Blood Count 7.88 K/uL (4.8-10.8)
[2020-08-28 08:34] LABS: BUN Creatinine Ratio 5.8 (10-20); Creatinine Clr Calc Pharmacy 42.3 ml/min; Est GFR (African American) 82.3; Potassium 3.7 mmol/L (3.5-5.1)
[2020-08-28] MEDS: DONEPEZIL HCL 5 MG TAB PO SCH (08:34)
[2020-08-28] MEDS: VENLAFAXINE HCL XR 150 MG CAPXR PO SCH (08:34)
[2020-08-28] MEDS: ASPIRIN 81 MG ECTAB PO SCH (08:34)
[2020-08-28] MEDS: HEPARIN SOD 5,000 UNIT/0.5 ML VIAL SQ SCH (08:34)
[2020-08-28] MEDS: POTASSIUM CHLORIDE CRTAB 20 MEQ TABCR PO SCH (08:34)
[2020-08-28] MEDS: AMOXICILLIN/CLAVULANATE 875 MG TAB PO SCH ×2 (08:35→14:29)
[2020-08-28] MEDS: METOPROLOL TARTRATE 25 MG TAB PO SCH (08:35)
[2020-08-28] MEDS: ATORVASTATIN 40 MG TAB PO SCH (11:08)
--- NOTE | 2020-08-28 12:46 | Discharge Summary ---
Date of Service August 28, 2020 Admission HPI Per Admitting Provider Oksana Dietz is an 85-year-old female with a past medical history of dementia, hypertension, and hyperlipidemia with one episode of diverticulitis 20 years ago who presents with 1 day of left lower abdominal pain and 2 weeks of decreased appetite. Patient's history is limited by dementia. History is taken with the assistance of her son at the bedside. They report that she was otherwise in her usual state of health when she developed left lower quadrant pain 1 day ago. She has also had some constipation, had a small bowel movement yesterday and last was several days prior to this. She has not had any blood in her bowel movements. She has not had any fever, shortness of breath, difficulty breathing, cough, change in sense of smell or taste, or shaking chills. She has been living at home with her son for the last 6 months and has not gone out, they have been careful to isolate for Covid and there have been no sick family members in the home. She last had a colonoscopy many years ago, her son does not know when she had one or what the results were. Patient reports that she is "not hungry ". Her son reports it has been hard to get her to eat for about 2 weeks, other than the decreased appetite, abdominal pain, and constipation they have not noticed any other symptoms. Patient reports she does not have pain on the right or upper side of her belly. Denies dysuria or change in urination. Her son reports she has not had any mental status change or urinary change. Patient has a medical history of parkinsonism, per family this was while she was on risperidone which was discontinued after which symptoms have greatly improved. Medical history: Reviewed Medications: Reviewed Surgical history: Reviewed in EMR Allergies: Reviewed Social: Denies alcohol, tobacco, and recreational drug use. Moved in with her son 6 months ago due to concern for living at home alone with dementia. No sick contacts at home. CODE STATUS: DNR/DNI. Would want a trial of intubation for declining respi ratory status, but not in the setting of cardiac arrest. Admission Exam Per Admitting Provider General: Alert, cooperative. Oriented to name and building ("hospital "). Not oriented to month, day, or year. HEENT: Atraumatic, normocephalic. Pupils equal and responsive to light and accommodation. Visual acuity grossly intact, hearing grossly intact. Pulm: CTAB A&P. -wheezes, -rales, -rhonchi. Symmetrical chest rise. No increase work of breathing. No respiratory distress. Cardiac: RRR, -mrg. Radial pulses intact and symmetrical. Abdominal: Left lower quadrant tender to palpation without radiation. No right lower quadrant or right upper quadrant tenderness. No CVA tenderness. Bowel sounds increased. Extremities: No lower extremity edema. Ankle dorsiflexion/plantar flexion and soil tester strength grossly intact with symmetrical strength. Sensation intact to soft touch in fingers and toes. PT pulse intact and symmetrical. Principal Diagnosis Acute Diverticulitis Discharge Exam Constitutional WD/WN, vitals as above Respiratory normal respiratory effort, lungs clear to auscultation Cardiovascular RRR, no murmur, no edema Gastrointestinal (Abdomen) Inspection/Auscultation: abdomen normal to inspection and normal bowel sounds Percussion/Palpation: + abdomen tender (mild LLQ TTP) and abdomen soft; no guarding Skin no rashes, warm and dry Psychiatric Orientation: alert, oriented to person and cooperative; + not oriented to place and + not oriented to time Discharge Data Allergies Allergy/AdvReac Type Severity Reaction Status Date / Time latex Allergy Intermediate SKIN Verified 08/25/20 23:02 IRRITATION celecoxib [From Celebrex] Allergy Unknown ON MED LIST Verified 08/25/20 23:02 codeine Allergy Unknown ON MED LIST Verified 08/25/20 23:02 doxycycline Allergy Unknown ON MED LIST Verified 08/25/20 23:02 ketorolac Allergy Unknown ON MED LIST Verified 08/25/20 23:02 levofloxacin [From Levaquin] Allergy Unknown ON MED LIST Verified 08/25/20 23:02 metronidazole [From Flagyl] Allergy Unknown ON MED LIST Verified 08/25/20 23:02 Sulfa (Sulfonamide Allergy Unknown ON MED LIST Verified 08/25/20 23:02 Antibiotics) Consultations 08/25/20 23:35 ED Decision to Admit Stat Ordered Studies 08/25/20 22:22 CT abd pelvis IV con only Urgent Hospital Course (1) Diverticulitis: Oksana Dietz is an 85-year-old female with a past medical history of dementia, hypertension, and hyperlipidemia with one episode of diverticulitis 20 years ago who was admitted to [facility] on 08/26/2020 for acute diverticulitis. Acute Diverticulitis - LLQ abdominal pain on exam, WBC 20 with neutrophilic dominance and left shift - CT Abd/Pelv showing diverticulitis without evidence of abscess or perforation - Zosyn transitioned to Augmentin 875/125 PO TID, plan for total of 10 days abx - Diet advanced to regular on 08/27 - IVFs discontinued on 08/27 - Discharged on 08/28 in good, stable condition with script for Augmentin x7 more days - f/u with PCP Severe Dementia - A+O to self only and h/o - Continue home mirtazapine 15 mg PO QHS, Donepezil 5 mg PO QAM - Continue donepezil 5 mg every morning Anxiety - Continue venlafaxine 150 mg PO QAM and Ativan 0.5 mg PO QID - Remeron as above Hypertension/hyperlipidemia - Continue aspirin daily - Continue atorvastatin 40 mg daily - Continue metoprolol 25 mg tartrate twice daily (2) Abdominal pain: (3) Dementia: (4) Parkinsonism: Total Time Total Time Spent Total Time Spent (In Minutes): <30 minutes Total Time Includes: Examination of the Patient, Discharge Planning and Medication Reconciliation Discharge Plan Discharge Items Patient Disposition: Home - Home Health Services Reason For Visit: DIVERTICULITIS Discharge Diagnosis: Acute Diverticulitis Activity: Per Instructions section Non-emergency contact: Primary Care Provider Call non-emergency contact if: you have any medication questions, your symptoms worsen and you have a fever Follow-up/Referrals: Roman Miller MD [Primary Care Provider] - Diet: Regular Addtl Attending Provider Instructions: You were admitted to [facility] on 08/26/2020 for an abdominal infection called acute diverticulitis. You were initially started on an IV antibiotic called Zosyn on 08/26, and you did very well on this medication with improved abdominal pain. You were also given a partial bowel rest with being allowed only clear liquid diet for ~24 hours, and you did well with this diet without nausea, vomiting, or increased abdominal pain. On 08/27, your IV antibiotic was transitioned to an oral antibiotic called Augmentin, and your diet was advanced to a regular diet. You continued to do well on the oral medication and the regular diet. Of note, you received one extra dose of Ativan (your home medication) due to delirium in the hospital, which is an unfortunate outcome for older patients with Dementia who stay in the hospital. You quickly improved back to your mental baseline after the Ativan and slept through the night. You will be discharged on 08/28/2020 in good, stable condition. You should continue to take the Augmentin antibiotic for another 7 days. You should continue to take all of your other home medications as prescribed. Lastly, you should folow up with your PCP. Pending Studies at Discharge: No Stand-Alone Forms: My [facility], Smoking Cessation Medications and DC Order Prescriptions: New amoxicillin-pot clavulanate [Augmentin] 875-125 mg tablet 1 tab PO TID Qty: 23 RF: 0 Continued metoprolol tartrate 25 mg tablet 25 mg PO AMHS RF: 0 aspirin 81 mg tablet,delayed release (DR/EC) 81 mg PO QAM RF: 0 atorvastatin 40 mg tablet 40 mg PO QDL RF: 0 venlafaxine 150 mg capsule,extended release 24hr 150 mg PO QAM RF: 0 donepezil 5 mg tablet 5 mg PO QAM RF: 0 lorazepam 0.5 mg tablet 0.5 mg PO QID RF: 0 mirtazapine 15 mg tablet 15 mg PO HS Qty: 30 RF: 2 Discharge Orders: Discharge Order (Routine); Ordered 08/28/20 Ordered By: Jaime Cordero/Other Patient Handouts: Low-Fiber Diet, Diverticulosis Diverticulitis Admission Data Admit Date/Time: 08/26/20 00:44 Attending Provider: Simone Kirkland Admit Provider: Guille Sidhu Primary Care Provider: Roman Miller Other Providers: Gavin Garcia ; Carmelo Ramirez ; [facility] Other Interventions: Discharge Summary Assessment (RN) Last Done: 08/28/20 13:48 Supervising Physician Co-Signing Physician Notes I personally examined the patient and verified all sharpe points of history and exam, discussed case, and agree with decision making with Dr Flor. no real belly pain. tolerating PO augmentin well. vitals noted nad heent nc at mmm abd soft nd no real LLQ tenderness no guarding no rebound diverticulitis - improved, tolerating diet and PO abx. safe for home otherwise as above Resident Activity Tracking Resident Involvement: Resident Care Provided Care Provided: Adult Hospital Medicine
--- NOTE | 2020-08-28 20:17 | Billing Data ---
Date of Service August 28, 2020 Coding Level of Care Code D/C Day Management <30 mins
== END 2020-08-28 14:50 | disposition home health service (06) ==
LOC: ED 21:31 → SUATTDRO 08-26 00:44 → 2N 08-26 00:44 → INTOOBSV 08-26 00:44 → 2N 08-26 01:13 → 3W 08-26 13:33

== ENCOUNTER 2024-05-17 18:02 | Inpatient (IN) ==
--- NOTE | 2024-05-17 18:05 | Emergency Department Note ---
Impression & Plan Abdominal pain, Diverticulitis, Elevated troponin ED Provider Note NAME: SURJIT NAVARRO AGE: 88 SEX: F : 1935 ARRIVES VIA: Ambulance INFORMANT: Patient, nursing/EMS report ED PROVIDER(S): Demetrius Tovar MD CHIEF COMPLAINT: Abdominal pain MEDICAL DECISION MAKING: Patient presents due to concern for abdominal pain. IV was established and blood work was obtained. Patient's history may be limited given the patient's history of dementia but does have reproducible abdominal pain on exam. CT abdomen pelvis ordered. Patient does have a prior history of diverticulitis. White count of 14 with a hemoglobin of 13. The patient was still complaining of pain after IV Ofirmev and the patient was ordered IV fentanyl. [id number] potassium 5.2 but lab was 4.3. Creatinine 1.15. The patient sugar 192. Troponin was slightly elevated but denies any chest pain. Procalcitonin was added patient was ordered empiric Zosyn after concerns for colitis. Repeat troponin was ordered to go from 17-40. Patient denies any chest pains or shortness of breath. CT abdomen pelvis does show concern for colitis. Given these concerns with the white count of 14 do not think unreasonable for inpatient treatment at this time as opposed to going back to center care. I did speak the on-call hospital service Dr. Suarez and the patient was admitted to the medicine service. Discussion w/ other healthcare providers: Dr. Jakcson inpatient medicine service Prior /Outside records reviewed: I reviewed a discharge summary from Dr. Matta from August 2020. Known history of dementia hypertension hyperlipidemia as well as diverticulitis who presented with left lower abdominal pain at that time. Patient was admitted with diverticulitis at that time. Differential diagnosis: Appendicitis, ovarian cyst, ovarian torsion, ectopic , TOA, PID, diverticulitis, UTI, obstruction, inflammatory bowel disease, renal colic, PUD, pancreatitis, biliary pathology, hernia, volvulus, constipation, as well as other pathologies were considered. Diagnostics, as interpreted by me: ECG: Sinus with PACs, rate of 69, normal intervals, normal axis no ST elevations. Cardiac monitoring: An order was placed for continuous cardiac monitoring. The monitor shows a rate of 72 with sinus rhythm. Patient was placed on pulse oximetry Medical decision rules: None Imaging studies: I informally interpreted the patient's CT abdomen pelvis does show evidence of colitis with formal report to follow. HPI: Patient presents from [facility] due to concern for lower abdominal pain. Reportedly the pain had mention the pain and this went away and then returned. The patient has had complaints of some occasional dysuria. Also some occasional nausea. No reported vomiting or trauma per review of her medication list does take aspirin but no other reported blood thinning medications. Patient denies any chest pains or shortness of breath no headache. Patient does have a history of dementia so the history may be unreliable but no reports from nursing or from the care facility/EMS of upper or lower respiratory symptoms or headache fall or syncope. Patient denies any blood in the urine or stool. PAST MEDICAL HISTORY: See Below PAST SURGICAL HISTORY: See Below SOCIAL HISTORY: See Below HOME MEDICATIONS: See Below ALLERGIES: See Below VITALS: See Below PHYSICAL EXAMINATION: GENERAL: NAD, non-toxic. EYE EXAM: Normal conjunctiva. PERRL, no anisocoria and EOM's grossly intact w/o pain. OROPHARYNX: Moist mucus membranes, grossly normal dentition. NECK: Trachea midline, no stridor. Supple, no nuchal rigidity, no adenopathy, non-tender. No signs of meningismus. FROM of the neck with good chin to chest and neck extension. LUNGS: Clear to auscultation. Normal chest wall mechanics. HEART: NSR, no MRG. ABDOMEN: Abdomen soft, diffuse abdominal pain most prominent in the lower abdomen, no obvious bulging or overlying skin changes, no masses, no rebound or guarding. BACK: No CVA TTP. SKIN: No rashes and no bruising. UPPER EXTREMITIES: Upper extremities are grossly normal. LOWER EXTREMITIES: Grossly normal, no edema. NEURO EXAM: A&O x3, cranial nerves II-XII grossly intact, normal speech, moves all 4 extremities. Past Med/Surg History Problem List (Updated 05/18/24 @ 17:55 by Demetrius Tovar MD) Elevated troponin (Acute) Calf pain Constipation Abdominal pain (Acute) Diverticulitis (Acute) Parkinsonism Dementia Hyperlipidemia Hypertension Medical History care home resident [facility] GERD without esophagitis Other secondary parkinsonism Elevated white blood cell count, unspecified Anxiety disorder Major depressive disorder Hyperlipidemia Essential (primary) hypertension Weakness Adult failure to thrive Unspecified dementia, unspecified severity, with other behavioral disturbance Leukocytosis Surgical History Surgical history unknown Family History Mother Heart disease Father Stroke Social History Smoking Status: Never smoker Hx Alcohol Use: No Hx Substance Use: No Preferred Language: Nigerien Communication Ability: Impaired Lawn Technician Required: No Beliefs That Will Affect Care: None marital status: / Current Living Situation: Residential Current Living Situation Comment: [facility] Other Information That Helps Us Care for You: No Feels Safe at Home: Yes Safety Concerns: Feels Safe At This Time Assistive Devices: None Allergies Allergies Allergy/AdvReac Type Severity Reaction Status Date / Time latex Allergy Intermediate SKIN Verified 05/17/24 18:51 IRRITATION celecoxib [From Celebrex] Allergy Unknown ON MED LIST Verified 05/17/24 18:51 codeine Allergy Unknown ON MED LIST Verified 05/17/24 18:51 doxycycline Allergy Unknown ON MED LIST Verified 05/17/24 18:51 levofloxacin [From Levaquin] Allergy Unknown ON MED LIST Verified 05/17/24 18:51 metronidazole [From Flagyl] Allergy Unknown ON MED LIST Verified 05/17/24 18:51 Sulfa (Sulfonamide Allergy Unknown ON MED LIST Verified 05/17/24 18:51 Antibiotics) sulfamethoxazole Allergy Unknown ON MED LIST Verified 05/17/24 18:51 [From Bactrim] trimethoprim [From Bactrim] Allergy Unknown ON MED LIST Verified 05/17/24 18:51 Home Meds Home Medications Medication Instructions Recorded Confirmed aspirin 81 mg tablet,delayed 81 mg PO QAM 07/03/20 05/17/24 release metoprolol tartrate 25 mg tablet 12.5 mg PO BIDM 07/03/20 05/17/24 venlafaxine 150 mg 150 mg PO QAM 07/03/20 05/17/24 capsule,extended release 24 hr acetaminophen 325 mg tablet 650 mg PO Q6H PRN PAIN/FEVER 05/22/23 05/17/24 (Tylenol) aluminum-mag hydroxide-simethicone 30 ml PO Q6H PRN Dyspepsia 05/22/23 05/17/24 400 mg-400 mg-40 mg/5 mL oral susp (Maalox Maximum Strength) buspirone 10 mg tablet 10 mg PO DAILY@1630 05/22/23 05/17/24 buspirone 5 mg tablet 5 mg PO AMHS 05/22/23 05/17/24 docusate sodium 100 mg tablet 200 mg PO HS 05/22/23 05/17/24 famotidine 20 mg tablet 20 mg PO BID 05/22/23 05/17/24 pantoprazole 40 mg tablet,delayed 40 mg PO DAILY 05/22/23 05/17/24 release mirtazapine 15 mg tablet 15 mg PO HS 05/17/24 05/17/24 Results & Data (ED) Vital Signs Vital Signs - 24 hr 05/17/24 18:11 05/17/24 19:30 05/17/24 19:39 Temperature 36.8 C Temperature Source Oral Pulse Rate 81 82 78 Pulse Rate [Finger] Pulse Rate from SpO2 Sensor Pulse Rhythm Regular Pulse Strength Normal Respiratory Rate 20 22 Respiratory Effort / Characteristics Non-Labored Respiratory Depth Normal Respiratory Pattern Regular Blood Pressure 213/99 H 201/110 H Blood Pressure [Right Arm] Blood Pressure Mean 137 135 Blood Pressure Mean [Right Arm] Blood Pressure Position Sitting Blood Pressure Position [Right Arm] Pulse Oximetry 98 95 Oxygen Delivery Method Room Air Sepsis Recent Fever Within 48 Hours No Sepsis New/Unexplained Change in Mental Status No Sepsis Action Taken by Nursing No Action Required 05/17/24 20:27 05/17/24 20:29 05/17/24 20:29 Temperature Temperature Source Pulse Rate Pulse Rate [Finger] 70 Pulse Rate from SpO2 Sensor 71 Pulse Rhythm Pulse Strength Respiratory Rate 20 Respiratory Effort / Characteristics Non-Labored Spontaneous Respiratory Depth Normal Respiratory Pattern Blood Pressure 143/88 H Blood Pressure [Right Arm] 143/88 H Blood Pressure Mean 104 Blood Pressure Mean [Right Arm] 106 Blood Pressure Position Blood Pressure Position [Right Arm] Pulse Oximetry 96 96 Oxygen Delivery Method Room Air Sepsis Recent Fever Within 48 Hours Sepsis New/Unexplained Change in Mental Status Sepsis Action Taken by Nursing 05/17/24 20:30 05/17/24 20:30 05/17/24 20:30 Temperature Temperature Source Pulse Rate Pulse Rate [Finger] Pulse Rate from SpO2 Sensor 74 Pulse Rhythm Pulse Strength Respiratory Rate Respiratory Effort / Characteristics Respiratory Depth Respiratory Pattern Blood Pressure 160/94 H 160/94 H Blood Pressure [Right Arm] Blood Pressure Mean 141 141 Blood Pressure Mean [Right Arm] Blood Pressure Position Blood Pressure Position [Right Arm] Pulse Oximetry 95 Oxygen Delivery Method Sepsis Recent Fever Within 48 Hours Sepsis New/Unexplained Change in Mental Status Sepsis Action Taken by Nursing 05/17/24 20:30 05/17/24 21:27 05/17/24 21:30 Temperature Temperature Source Pulse Rate 75 Pulse Rate [Finger] Pulse Rate from SpO2 Sensor 68 Pulse Rhythm Pulse Strength Respiratory Rate Respiratory Effort / Characteristics Respiratory Depth Respiratory Pattern Blood Pressure 160/94 H 174/88 H Blood Pressure [Right Arm] Blood Pressure Mean 141 134 Blood Pressure Mean [Right Arm] Blood Pressure Position Blood Pressure Position [Right Arm] Pulse Oximetry 95 96 Oxygen Delivery Method Sepsis Recent Fever Within 48 Hours Sepsis New/Unexplained Change in Mental Status Sepsis Action Taken by Nursing 05/17/24 22:00 05/17/24 22:03 05/17/24 22:31 Temperature Temperature Source Pulse Rate 75 74 Pulse Rate [Finger] 72 Pulse Rate from SpO2 Sensor 70 Pulse Rhythm Pulse Strength Respiratory Rate 18 Respiratory Effort / Characteristics Non-Labored Spontaneous Respiratory Depth Normal Respiratory Pattern Regular Blood Pressure 163/97 H 190/86 H Blood Pressure [Right Arm] 163/97 H Blood Pressure Mean 119 116 Blood Pressure Mean [Right Arm] 119 Blood Pressure Position Blood Pressure Position [Right Arm] Lying Pulse Oximetry 96 96 96 Oxygen Delivery Method Room Air Sepsis Recent Fever Within 48 Hours Sepsis New/Unexplained Change in Mental Status Sepsis Action Taken by Nursing 05/17/24 23:00 05/17/24 23:29 Temperature Temperature Source Pulse Rate 75 121 H Pulse Rate [Finger] Pulse Rate from SpO2 Sensor Pulse Rhythm Pulse Strength Respiratory Rate Respiratory Effort / Characteristics Respiratory Depth Respiratory Pattern Blood Pressure 203/114 H Blood Pressure [Right Arm] Blood Pressure Mean 144 Blood Pressure Mean [Right Arm] Blood Pressure Position Blood Pressure Position [Right Arm] Pulse Oximetry 96 Oxygen Delivery Method Sepsis Recent Fever Within 48 Hours Sepsis New/Unexplained Change in Mental Status Sepsis Action Taken by Residential Medications Current Medication List: was personally reviewed by me Laboratory Data Attestation: I reviewed the patient's lab results. 05/17/24 18:20 05/17/24 18:20 Lab Results 05/17/24 05/17/24 05/17/24 Range/Units 18:20 18:24 21:02 WBC 14.54 H (4.8-10.8) K/ul RBC 4.85 (4.20-5.40) M/uL Hgb 13.1 (12.0-16.0) g/dl POC Hgb 13.9 (12.0-16.0) g/dl Hct 39.5 (37.0-47.0) % POC Hct 41 (37-47) % MCV 81.4 (80.0-100.0) fL MCH 27.0 (25.0-34.0) pg MCHC 33.2 (32.0-36.0) g/dL RDW Std Deviation 43.9 (36.4-46.3) fL RDW Coeff of Rosangela 14.6 H (11.5-14.5) % Plt Count 302 (130-400) K/uL MPV 10.5 (9.4-12.4) fL Immature Gran % (Auto) 0.4 % Neut % (Auto) 87.0 % Lymph % (Auto) 7.6 % [place] % (Auto) 4.3 % Eos % (Auto) 0.3 % Baso % (Auto) 0.4 % Neut # (Auto) 12.63 H (1.40-6.50) K/uL Lymph # (Auto) 1.11 L (1.20-3.40) K/uL [place] # (Auto) 0.63 H (0.11-0.59) K/uL Eos # (Auto) 0.05 (0.00-0.50) K/uL Baso # (Auto) 0.06 (0.00-0.20) K/uL Immature Gran # (Auto) 0.06 (0.01-0.20) K/uL POC Sodium 138 (135-144) mmol/L Sodium 136 (136-145) mmol/L POC Potassium 5.2 H (3.3-5.0) mmol/L Potassium 4.3 (3.5-5.1) mmol/L POC Chloride 107 (101-112) mmol/L Chloride 105 (98-107) mmol/L Carbon Dioxide 19 L (21-32) mmol/L POC Total CO2 20 L (24-31) mmol/L Anion Gap 12 H (3-11) POC Anion Gap 17.0 (16-25) mmol/L POC BUN 28 H (7-18) mg/dl BUN 23 (6-23) mg/dl Creatinine 1.15 (0.6-1.2) mg/dl POC Creatinine 1.1 (0.6-1.3) mg/dl Est Cr Clr Drug Dosing Not Reportable Est GFR ( Amer) 48.9 ml/min Est GFR (Non-Af Amer) 42.2 ml/min BUN/Creatinine Ratio 20.0 (10-20) Glucose 192 H (70-99(Fasting)) mg/dl POC Glucose (other) 186 H (70-99) mg/dl Calcium 10.5 H (8.6-10.3) mg/dl POC Ioniz Calcium Karis 1.12 (1.12-1.32) mmol/l Total Bilirubin 0.3 (0.2-1.0) mg/dl AST 23 (13-39) U/L ALT 15 (7-52) U/L Alkaline Phosphatase 144 H (34-104) U/L Troponin I High Sens 17.2 H 40.0 H D (0-14) pg/ml Total Protein 8.2 (6.0-8.3) gm/dl Albumin 4.5 (3.4-5.0) gm/dl Globulin 3.7 (2.5-4.0) gm/dl Albumin/Globulin Ratio 1.2 (0.9-2) Lipase 21 (11-82) U/L Procalcitonin < 0.02 (0-0.5) ng/ml Administered Medications Buspirone HCl (Buspirone 5 Mg Tab) 5 mg PO AMHS [facility] Stop: 06/17/24 08:59 Last Admin: 05/18/24 09:06 Dose: 5 mg Documented By: OSWALDO Famotidine (Famotidine 20 Mg Tab) 20 mg PO BID [facility] Stop: 06/17/24 08:59 Last Admin: 05/18/24 09:00 Dose: 20 mg Documented By: OSWALDO Heparin Sodium (Porcine) (Heparin Sod 5,000 Unit/0.5 Ml Vial) 5,000 units SQ Q12 [facility] Stop: 06/17/24 08:59 Last Admin: 05/18/24 09:01 Dose: 5,000 units Documented By: MES Metoprolol Tartrate (Metoprolol Tartrate 25 Mg Tab) 12.5 mg PO BIDM [facility] Stop: 06/17/24 08:08 Last Admin: 05/18/24 09:00 Dose: 12.5 mg Documented By: OSWALDO Morphine Sulfate (Morphine Sulfate 4 Mg/Ml 1 Ml Carp\Vial) 4 mg IV Q3H PRN PRN Reason: Severe Pain (Scale 7, 8, 9,10) Stop: 06/01/24 03:28 Last Admin: 05/18/24 10:41 Dose: 4 mg Documented By: OSWALDO Morphine Sulfate (Morphine Sulfate 2 Mg/Ml Carp) 2 mg IV Q3H PRN PRN Reason: Moderate Pain (Scale 4, 5, 6) Stop: 06/01/24 03:28 Last Admin: 05/18/24 06:21 Dose: 2 mg Documented By: Admin: 05/18/24 03:55 Dose: 2 mg Documented By: TY Pantoprazole Sodium (Pantoprazole 40 Mg Tab) 40 mg PO DAILY [facility] Stop: 06/17/24 08:59 Last Admin: 05/18/24 09:01 Dose: 40 mg Documented By: OSWALDO Polyethylene Glycol (Polyethylene (Miralax) 17 Gm Pack) 17 gm PO DAILY [facility] Stop: 06/17/24 08:59 Last Admin: 05/18/24 09:01 Dose: Not Given Documented By: OSWALDO Venlafaxine HCl (Venlafaxine Hcl Xr 150 Mg Capxr) 150 mg PO QAM [facility] Stop: 06/17/24 08:59 Last Admin: 05/18/24 09:00 Dose: 150 mg Documented By: OSWALDO Discontinued Medications Fentanyl Citrate (Fentanyl Citrate Pf 100 Mcg/2 Ml Vial) 25 mcg IV NOW STA Stop: 05/17/24 20:52 Last Admin: 05/17/24 21:02 Dose: 25 mcg Documented By: VALENTIN Fentanyl Citrate (Fentanyl Citrate Pf 100 Mcg/2 Ml Vial) 25 mcg IV NOW STA Stop: 05/17/24 22:04 Last Admin: 05/17/24 22:05 Dose: 25 mcg Documented By: VALENTIN Sodium Chloride (Nss) 500 mls @ 999 mls/hr IV .Q31M STA Stop: 05/17/24 18:41 Last Infusion: 05/17/24 19:25 Dose: Infused Documented By: Admin: 05/17/24 18:38 Dose: 999 mls/hr Documented By: HAYDEN Acetaminophen (Ofirmev) 1,000 mg in 100 mls @ 400 mls/hr IV NOW STA Stop: 05/17/24 18:25 Last Infusion: 05/17/24 19:25 Dose: Infused Documented By: Admin: 05/17/24 18:38 Dose: 400 mls/hr Documented By: HAYDEN Piperacillin Sod/Tazobactam Sod (Zosyn) 4.5 gm in 100 mls @ 200 mls/hr IV NOW ONE Stop: 05/17/24 21:20 Last Infusion: 05/17/24 21:39 Dose: Infused Documented By: Admin: 05/17/24 21:02 Dose: 200 mls/hr Documented By: VALNETIN Acetaminophen (Ofirmev) 1,000 mg in 100 mls @ 400 mls/hr IV NOW STA Stop: 05/18/24 00:23 Last Infusion: 05/18/24 03:55 Dose: Infused Documented By: Admin: 05/18/24 00:46 Dose: 400 mls/hr Documented By: DAYLIN Lactated Ringer's (Lr) 1,000 mls @ 80 mls/hr IV .[id number] ONE Stop: 05/18/24 12:42 Last Infusion: 05/18/24 13:16 Dose: Infused Documented By: Admin: 05/18/24 00:46 Dose: 80 mls/hr Documented By: EJW Ioversol (Optiray 320 100ml) 94 ml IV ONCE ONE Stop: 05/17/24 19:51 Last Admin: 05/17/24 19:50 Dose: 94 ml Documented By: PLW Polyethylene Glycol (Polyethylene (Miralax) 17 Gm Pack) 17 gm PO ONE ONE Stop: 05/18/24 15:01 Last Admin: 05/18/24 14:52 Dose: Not Given Documented By: DLP Imaging Data Radiologist's Impression: Abdomen/Pelvis CT 05/17/24 18:11 Exam(s): CT ABDOMEN + PELVIS With Contrast IV Amt: 94 ml optiray 320 EXAM: CT Abdomen and Pelvis With Intravenous Contrast CLINICAL HISTORY: Reason for exam: lower ab pain. TECHNIQUE: Axial computed tomography images of the abdomen and pelvis with intravenous contrast. CTDI is 20.28 mGy and DLP is 948.91 mGy-cm. Automated exposure control was utilized for the study. A dose lowering technique was utilized adhering to the principles of ALARA. CONTRAST: Patient received 94 ml optiray 320 of IV contrast COMPARISON: No relevant prior studies available. FINDINGS: Lung bases: Unremarkable. No mass. No consolidation. ABDOMEN: Liver: 3.7 cm simple cysts in the right liver lobe superiorly and medially. There is also a 2.7 cm cyst adjacent to the gallbladder fossa. No follow-up is required. Mild fatty infiltration of the liver. Gallbladder and bile ducts: Unremarkable. No calcified stones. No ductal dilation. Pancreas: Unremarkable. No mass. No ductal dilation. Spleen: Unremarkable. No splenomegaly. Adrenals: Unremarkable. No mass. Kidneys and ureters: Unremarkable. No solid mass. No hydronephrosis. Stomach and bowel: There is diverticulosis throughout the sigmoid colon with mild wall thickening and surrounding free fluid suspicious for colitis. There is a relatively large amount of stool throughout the section of the colon. Probable mild constipation. No bowel perforation or abscess is identified. PELVIS: Appendix: The appendix is normal. Bladder: Unremarkable. No mass. Reproductive: The uterus has been removed. ABDOMEN and PELVIS: Intraperitoneal space: See above. Bones/joints: Moderate to severe multilevel degenerative changes seen throughout the spine. No acute fracture or subluxation is seen. Soft tissues: Unremarkable. Vasculature: The abdominal aorta is mildly calcified but nondilated. Lymph nodes: Unremarkable. No enlarged lymph nodes. IMPRESSION: There is diverticulosis throughout the sigmoid colon with mild wall thickening and surrounding free fluid suspicious for colitis. There is a relatively large amount of stool throughout the section of the colon. Probable mild constipation. No bowel perforation or abscess is identified. Electronically signed by: Angel Mcgill MD 05/17/24 21:28 PM Discharge Plan Visit Data Chief Complaint: Abdominal Pain ED Provider: Demetrius Tovar Discharge Problem: Abdominal pain, Diverticulitis, Elevated troponin Patient Disposition: Admitted As Inpatient Discharge Instructions Interventions: ED Discharge Assessment Last Done: 05/18/24 01:30 Discharge Problem: Abdominal pain Qualifiers: Abdominal location: lower abdomen, unspecified Qualified Code(s): R10.30 - Lower abdominal pain, unspecified
[2024-05-17 18:37] LABS: iSTAT Creatinine 1.1 mg/dl (0.6-1.3); iSTAT Hemoglobin 13.9 g/dl (12.0-16.0); iSTAT Ionized Calcium 1.12 mmol/l (1.12-1.32); iSTAT Potassium 5.2 mmol/L (3.3-5.0)
[2024-05-17] MEDS: SODIUM CHLORIDE 0.9% 500 ML IV STA (18:38)
[2024-05-17] MEDS: ACETAMINOPHEN 1,000 MG/100 ML VIAL IV STA (18:38)
[2024-05-17 18:53] LABS: Basophils # (auto) 0.06 K/uL (0.00-0.20); Basophils % (auto) 0.4 %; Eosinophils # (auto) 0.05 K/uL (0.00-0.50); Eosinophils % (auto) 0.3 %; Hematocrit (blood only) 39.5 % (37.0-47.0); Hemoglobin 13.1 g/dl (12.0-16.0); Immature Granulocytes # (auto) 0.06 K/uL (0.01-0.20); Immature Granulocytes % (auto) 0.4 %; Lymphocytes # (auto) 1.11 K/uL (1.20-3.40); Lymphocytes % (auto) 7.6 %; Mean Corpuscular Hgb Conc 33.2 g/dL (32.0-36.0); Mean Corpuscular Volume 81.4 fL (80.0-100.0); Mean Platelet Volume 10.5 fL (9.4-12.4); Monocytes # (auto) 0.63 K/uL (0.11-0.59); Monocytes % (auto) 4.3 %; Neutrophils # (auto) 12.63 K/uL (1.40-6.50); Platelet Count 302 K/uL (130-400); RDW Coefficient of Variation 14.6 % (11.5-14.5); RDW Standard Deviation 43.9 fL (36.4-46.3); Red Blood Count 4.85 M/uL (4.20-5.40); White Blood Count 14.54 K/ul (4.8-10.8)
[2024-05-17 19:05] LABS: Alanine Aminotransferase 15 U/L (7-52); Albumin Globulin Ratio 1.2 (0.9-2); Albumin Level 4.5 gm/dl (3.4-5.0); Alkaline Phosphatase 144 U/L (34-104); Anion Gap 12 (3-11); Aspartate Aminotransferase 23 U/L (13-39); Bilirubin,Total 0.3 mg/dl (0.2-1.0); Blood Urea Nitrogen 23 mg/dl (6-23); Calcium 10.5 mg/dl (8.6-10.3); Carbon Dioxide 19 mmol/L (21-32); Chloride 105 mmol/L (98-107); Est GFR (African American) 48.9 ml/min; Est GFR (Non-African American) 42.2 ml/min; Globulin 3.7 gm/dl (2.5-4.0); Glucose 192 mg/dl (70-99(Fasting)); Lipase 21 U/L (11-82); Potassium 4.3 mmol/L (3.5-5.1); Sodium 136 mmol/L (136-145); Total Protein 8.2 gm/dl (6.0-8.3)
[2024-05-17 19:11] LABS: Troponin I High Sensitivity 17.2 pg/ml (0-14)
[2024-05-17] MEDS: OPTIRAY 320 100ml IV ONE (19:50)
[2024-05-17] MEDS: fentaNYL citrate PF 100 MCG/2 ML VIAL IV STA ×2 (21:02→22:05)
[2024-05-17] MEDS: PIPERACILLIN/TAZOBACTAM 4.5 GM/100 ML BAG IV ONE (21:02)
--- NOTE | 2024-05-17 21:29 | CT Scan Report ---
Exam(s): CT ABDOMEN + PELVIS With Contrast IV Amt: 94 ml optiray 320 EXAM: CT Abdomen and Pelvis With Intravenous Contrast CLINICAL HISTORY: Reason for exam: lower ab pain. TECHNIQUE: Axial computed tomography images of the abdomen and pelvis with intravenous contrast. CTDI is 20.28 mGy and DLP is 948.91 mGy-cm. Automated exposure control was utilized for the study. A dose lowering technique was utilized adhering to the principles of ALARA. CONTRAST: Patient received 94 ml optiray 320 of IV contrast COMPARISON: No relevant prior studies available. FINDINGS: Lung bases: Unremarkable. No mass. No consolidation. ABDOMEN: Liver: 3.7 cm simple cysts in the right liver lobe superiorly and medially. There is also a 2.7 cm cyst adjacent to the gallbladder fossa. No follow-up is required. Mild fatty infiltration of the liver. Gallbladder and bile ducts: Unremarkable. No calcified stones. No ductal dilation. Pancreas: Unremarkable. No mass. No ductal dilation. Spleen: Unremarkable. No splenomegaly. Adrenals: Unremarkable. No mass. Kidneys and ureters: Unremarkable. No solid mass. No hydronephrosis. Stomach and bowel: There is diverticulosis throughout the sigmoid colon with mild wall thickening and surrounding free fluid suspicious for colitis. There is a relatively large amount of stool throughout the section of the colon. Probable mild constipation. No bowel perforation or abscess is identified. PELVIS: Appendix: The appendix is normal. Bladder: Unremarkable. No mass. Reproductive: The uterus has been removed. ABDOMEN and PELVIS: Intraperitoneal space: See above. Bones/joints: Moderate to severe multilevel degenerative changes seen throughout the spine. No acute fracture or subluxation is seen. Soft tissues: Unremarkable. Vasculature: The abdominal aorta is mildly calcified but nondilated. Lymph nodes: Unremarkable. No enlarged lymph nodes. IMPRESSION: There is diverticulosis throughout the sigmoid colon with mild wall thickening and surrounding free fluid suspicious for colitis. There is a relatively large amount of stool throughout the section of the colon. Probable mild constipation. No bowel perforation or abscess is identified. Electronically signed by: Angel Mcgill MD 05/17/24 21:28 PM
--- NOTE | 2024-05-17 22:29 | History & Physical Report ---
Date of Service May 17, 2024 Assessment & Plan (1) Abdominal pain: (2) Constipation: (3) Diverticulitis: (4) Dementia: (5) Hyperlipidemia: (6) Hypertension: (7) Calf pain: Plan Patient is a 88 yo F w/ a PMHx of anxiety/depression, HTN, HLD, secondary parkinsonism, dementia, GERD, Hx of diverticulitis, adult failure to thrive currently living at [facility] who presented to [facility] ED with concerns for abdominal pain. 1) Diverticulitis/Colitis - WBC, 14.5 on admission; pt denies fevers, chills, blood in stool but endorses acute constipation - CT as above in Diagnostics - one dose of Zosyn, 4.5 g, IV, in the ED - maintenance, LR, 80 mls/hr, 1 L - NPO right now - Tylenol, 1000 mg, IV, once for pain; no more opioids considering patient's constipation - AM CBC, AM BMP 2) bilateral calf pain - Doppler US venous, bilateral ordered, pending 3) High Glucose - Glu 192, no Hx or current Dx of diabetes - A1C ordered for AM labs, BMP AM labs 4) Elevated HS troponins - 40 <-- 17 - check AM HS-Trop 5) Chronic constipation - hold docusate and Maalox for now - likely contributed to patient's acute diverticulitis, need to develop different prevention plan going forward 6) GERD - continue pantoprazole and famotidine 7) Anxiety/depression - continue venlafaxine and mirtazapine and buspirone 8) HTN - metoprolol 8) HLD - hold aspirin Code status: DNR/DNI Disposition: Med-Surg w/ Telemetry DVT Prophylaxis: pending Doppler US study, SCD's if no evidence of current DVT FENGI: NPO now and overnight History of Present Illness Chief Complaint: abdominal pain Primary Care Provider: [facility] Patient is a 88 yo F w/ a PMHx of anxiety/depression, HTN, HLD, secondary parkinsonism, dementia, GERD, Hx of diverticulitis, adult failure to thrive currently living at [facility] who presented to [facility] ED with concerns for abdominal pain. Patient denies nausea, vomiting, diarrhea but does endorse constipation. Patient also denies any blood in the stools. Patient's last BM was late afternoon yesterday, and since that time has had decreased oral intake although she has been able to eat a little at each meal. Patient unable to recall whether she has felt this type of pain before, and whether it's similar to previous acute diverticulitis pain. Allergies Allergy/AdvReac Type Severity Reaction Status Date / Time latex Allergy Intermediate SKIN Verified 05/17/24 18:51 IRRITATION celecoxib [From Celebrex] Allergy Unknown ON MED LIST Verified 05/17/24 18:51 codeine Allergy Unknown ON MED LIST Verified 05/17/24 18:51 doxycycline Allergy Unknown ON MED LIST Verified 05/17/24 18:51 levofloxacin [From Levaquin] Allergy Unknown ON MED LIST Verified 05/17/24 18:51 metronidazole [From Flagyl] Allergy Unknown ON MED LIST Verified 05/17/24 18:51 Sulfa (Sulfonamide Allergy Unknown ON MED LIST Verified 05/17/24 18:51 Antibiotics) sulfamethoxazole Allergy Unknown ON MED LIST Verified 05/17/24 18:51 [From Bactrim] trimethoprim [From Bactrim] Allergy Unknown ON MED LIST Verified 05/17/24 18:51 Home Medications Medication Instructions Recorded Confirmed Type aspirin 81 mg tablet,delayed 81 mg PO QAM 07/03/20 05/17/24 History release metoprolol tartrate 25 mg tablet 12.5 mg PO BIDM 07/03/20 05/17/24 History venlafaxine 150 mg 150 mg PO QAM 07/03/20 05/17/24 History capsule,extended release 24 hr acetaminophen 325 mg tablet 650 mg PO Q6H PRN PAIN/FEVER 05/22/23 05/17/24 History (Tylenol) aluminum-mag hydroxide-simethicone 30 ml PO Q6H PRN Dyspepsia 05/22/23 05/17/24 History 400 mg-400 mg-40 mg/5 mL oral susp (Maalox Maximum Strength) buspirone 10 mg tablet 10 mg PO DAILY@1630 05/22/23 05/17/24 History buspirone 5 mg tablet 5 mg PO AMHS 05/22/23 05/17/24 History docusate sodium 100 mg tablet 200 mg PO HS 05/22/23 05/17/24 History famotidine 20 mg tablet 20 mg PO BID 05/22/23 05/17/24 History pantoprazole 40 mg tablet,delayed 40 mg PO DAILY 05/22/23 05/17/24 History release mirtazapine 15 mg tablet 15 mg PO HS 05/17/24 05/17/24 History Past Med/Surg History Problem List (Updated 05/18/24 @ 17:55 by Demetrius Tovar MD) Elevated troponin (Acute) Calf pain Constipation Abdominal pain (Acute) Diverticulitis (Acute) Parkinsonism Dementia Hyperlipidemia Hypertension Medical History [facility] resident [facility] GERD without esophagitis Other secondary parkinsonism Elevated white blood cell count, unspecified Anxiety disorder Major depressive disorder Hyperlipidemia Essential (primary) hypertension Weakness Adult failure to thrive Unspecified dementia, unspecified severity, with other behavioral disturbance Leukocytosis Surgical History Surgical history unknown Family History Mother Heart disease Father Stroke Social History Smoking Status: Never smoker Hx Alcohol Use: No Hx Substance Use: No Preferred Language: Urdu Communication Ability: Impaired Rehabilitation Inspector Required: No Beliefs That Will Affect Care: None marital status: / Current Living Situation: [facility] Current Living Situation Comment: [facility] Other Information That Helps Us Care for You: No Feels Safe at Home: Yes Safety Concerns: Feels Safe At This Time Assistive Devices: None Review of Systems Constitutional: no fever and no chills Respiratory: no cough and no dyspnea Cardiovascular: no chest pain, no dyspnea, no palpitations and no lightheadedness Gastrointestinal: + constipation; no nausea, no vomiting a nd no blood in stools Genitourinary: no dysuria, no difficulty urinating, no urinary frequency, no urinary urgency and no hematuria Neurologic: no tingling and no numbness Physical Exam Constitutional: WD/WN, vitals as above well developed, + frail appearing, cooperative and comfortable Respiratory: normal respiratory effort, lungs clear to auscultation Cardiovascular: RRR, no murmur, no edema Extremities: normal capillary refill and + calf tenderness; no pedal edema Gastrointestinal (Abdomen): Inspection/Auscultation: abdomen normal to inspection and normal bowel sounds; abdomen not distended Percussion/Palpation: + abdomen tender and abdomen soft; no hepatosplenomegaly Psychiatric: Orientation: alert, oriented to person and cooperative; + not oriented to place and + not oriented to time Results & Data Results & Data Vital Signs (Past 12 Hours) Vital Signs Temp Pulse Pulse Resp BP BP Pulse Ox 05/17/24 22:03 72 18 163/97 H 96 05/17/24 20:29 70 20 143/88 H 96 05/17/24 19:39 78 05/17/24 18:11 36.8 C 81 20 213/99 H 98 O2 Del Method 05/17/24 22:03 Room Air 05/17/24 20:29 Room Air 05/17/24 19:39 05/17/24 18:11 Room Air Diagnostic Findings Abdomen/Pelvis CT 05/17/24 18:11 Exam(s): CT ABDOMEN + PELVIS With Contrast IV Amt: 94 ml optiray 320 EXAM: CT Abdomen and Pelvis With Intravenous Contrast CLINICAL HISTORY: Reason for exam: lower ab pain. TECHNIQUE: Axial computed tomography images of the abdomen and pelvis with intravenous contrast. CTDI is 20.28 mGy and DLP is 948.91 mGy-cm. Automated exposure control was utilized for the study. A dose lowering technique was utilized adhering to the principles of ALARA. CONTRAST: Patient received 94 ml optiray 320 of IV contrast COMPARISON: No relevant prior studies available. FINDINGS: Lung bases: Unremarkable. No mass. No consolidation. ABDOMEN: Liver: 3.7 cm simple cysts in the right liver lobe superiorly and medially. There is also a 2.7 cm cyst adjacent to the gallbladder fossa. No follow-up is required. Mild fatty infiltration of the liver. Gallbladder and bile ducts: Unremarkable. No calcified stones. No ductal dilation. Pancreas: Unremarkable. No mass. No ductal dilation. Spleen: Unremarkable. No splenomegaly. Adrenals: Unremarkable. No mass. Kidneys and ureters: Unremarkable. No solid mass. No hydronephrosis. Stomach and bowel: There is diverticulosis throughout the sigmoid colon with mild wall thickening and surrounding free fluid suspicious for colitis. There is a relatively large amount of stool throughout the section of the colon. Probable mild constipation. No bowel perforation or abscess is identified. PELVIS: Appendix: The appendix is normal. Bladder: Unremarkable. No mass. Reproductive: The uterus has been removed. ABDOMEN and PELVIS: Intraperitoneal space: See above. Bones/joints: Moderate to severe multilevel degenerative changes seen throughout the spine. No acute fracture or subluxation is seen. Soft tissues: Unremarkable. Vasculature: The abdominal aorta is mildly calcified but nondilated. Lymph nodes: Unremarkable. No enlarged lymph nodes. IMPRESSION: There is diverticulosis throughout the sigmoid colon with mild wall thickening and surrounding free fluid suspicious for colitis. There is a relatively large amount of stool throughout the section of the colon. Probable mild constipation. No bowel perforation or abscess is identified. Electronically signed by: Angel Mcgill MD 05/17/24 21:28 PM Supervising Physician Co-Signing Physician Notes Attending addendum: I have physically seen this patient, have supervised the medical residents activities, and agree with the H&P unless as otherwise noted. Assessment and Plan: Sigmoid colitis/diverticulosis/fecal retention/constipation- From the ED received the following: NSS 500 mill bolus, Tylenol 1 g IV, fentanyl 25 mcg IV x 2, and Zosyn 4.5 g IV N.p.o. except essential medications Continue IV fluids with LR at 80 mL/h x 1 L Zosyn 4.5 g IV every 8 hours Pantoprazole 40 mg IV daily Zofran 4 mg IV every 6 hours as needed Acetaminophen 1 g IV every 8 hours as needed for mild pain or fever Morphine sulfate 2 mg IV every 3 hours as needed for moderate pain Morphine sulfate 4 mg IV every 3 hours as needed for severe pain Hyperglycemia- Glucose 192 on admission with no history of diabetes Check hemoglobin A1c Repeat laboratories in a.m., and if indicated start SSI at that time Bilateral calf pain- Order lower extremity Dopplers SCDs if negative, heparin if positive Hypertension- Metoprolol with hold parameters Anxiety/depression- Continue venlafaxine, mirtazapine and buspirone (1) Abdominal pain Abdominal location: unspecified location Qualified Code(s): R10.9 - Unspecified abdominal pain
[2024-05-18] MEDS: LACTATED RINGER'S 1,000 ML IV ONE (00:46)
[2024-05-18] MEDS: ACETAMINOPHEN 1,000 MG/100 ML VIAL IV STA (00:46)
--- NOTE | 2024-05-18 02:57 | Ultrasound Report ---
Exam(s): US VENOUS BILATERAL LOWER EXTREMITIES EXAM: US Duplex Bilateral Lower Extremities Veins CLINICAL HISTORY: Reason for exam: calf pain. TECHNIQUE: Real-time duplex ultrasound scan of the bilateral lower extremity veins integrating B-mode two-dimensional vascular structure, Doppler spectral analysis, color flow Doppler imaging and compression. COMPARISON: No relevant prior studies available. FINDINGS: Right deep veins: Unremarkable. No DVT in the right common femoral, femoral, proximal deep femoral or popliteal veins. The veins demonstrate normal color flow, are normally compressible, with normal phasic flow and/or augmentation response. Right superficial veins: Unremarkable. No thrombus in the visualized right great saphenous vein. Left deep veins: Unremarkable. No DVT in the left common femoral, femoral, proximal deep femoral or popliteal veins. The veins demonstrate normal color flow, are normally compressible, with normal phasic flow and/or augmentation response. Left superficial veins: Unremarkable. No thrombus in the visualized left great saphenous vein. Soft tissues: No acute findings. No popliteal cyst. IMPRESSION: Negative bilateral lower extremity duplex venous ultrasound. No evidence of DVT. Electronically signed by: Angle Mcgill MD 05/18/24 02:56 AM
[2024-05-18] MEDS: MoRPHine SULFATE 2 MG/ML CARP IV PRN (03:55)
[2024-05-18 04:44] LABS: Appearance Urine Clear (Clear); Bacteria Urine Automated None Seen (None Seen); Bilirubin Urine Negative (Negative); Blood Urine 1+ (Negative); Color Urine Yellow; Glucose Urine UA 1+ (Negative); Ketones Urine Trace (Negative); Leukocyte Esterase Urine Negative (Negative); Nitrite Urine Negative (Negative); Protein Urine 1+ (Negative); RBC Urine Automated 0-2 /hpf (0-2); Specific Gravity Urine > 1.045 (1.000-1.030); Urobilinogen Urine Negative (Negative); pH Urine 5.5 (4.5-7.5)
[2024-05-18 04:54] LABS: Amorphous Sediment Urine Present (None Prsent)
--- NOTE | 2024-05-18 08:17 | Hospitalist Progress Note ---
Date of Service May 18, 2024 Assessment & Plan (1) Abdominal pain: Plan: Diverticulitis/Colitis,possible stercoral colitis - Leukocytosis, Zosyn therapy, assure colonic evacuation constipation contributing, use cathartic agents -ua will be also sent for culture (2) Hypertension: Plan: chronic and stable continue metoprolol (3) Elevated troponin: Plan: troponin 17->40->33 ECG nsr no acute changes suspect demand ischemia from illness (4) Dementia: Plan: with depression/ anxiety - continue venlafaxine and mirtazapine and buspirone Plan bilateral calf pain - Doppler US venous, bilateral ordered, pending Code status: DNR/DNI Admission and Anticipated Discharge Date Admission Date: May 17, 2024 Subjective pt is pleasantly confused, no focal complaints but oriented x 2 Physical Exam Physical Exam: Patient really has very little abdominal pain to examination she has normal active bowel sounds concern for stercoral colitis on imaging with antibiotic treatment. Oriented x 2 no focal neurological loss Card exam is regular with a systolic murmur Results & Data Results & Data Vital Signs (Past 12 Hours) Vital Signs Temp Pulse Pulse Resp BP BP Pulse Ox 05/18/24 07:11 80 05/18/24 06:00 96 H 20 148/90 H 95 05/18/24 01:40 98.6 F 71 16 183/91 H 99 05/18/24 00:49 83 15 183/91 H 98 05/17/24 23:29 121 H 05/17/24 23:00 75 203/114 H 96 05/17/24 22:31 74 190/86 H 96 05/17/24 22:03 72 18 163/97 H 96 05/17/24 22:00 75 163/97 H 96 05/17/24 21:30 75 174/88 H 96 05/17/24 21:27 95 05/17/24 20:30 160/94 H 05/17/24 20:30 160/94 H 05/17/24 20:30 160/94 H 05/17/24 20:30 95 05/17/24 20:29 143/88 H 05/17/24 20:29 70 20 143/88 H 96 05/17/24 20:27 96 O2 Del Method 05/18/24 07:11 05/18/24 06:00 Room Air 05/18/24 01:40 Room Air 05/18/24 00:49 Room Air 05/17/24 23:29 05/17/24 23:00 05/17/24 22:31 05/17/24 22:03 Room Air 05/17/24 22:00 05/17/24 21:30 05/17/24 21:27 05/17/24 20:30 05/17/24 20:30 05/17/24 20:30 05/17/24 20:30 05/17/24 20:29 05/17/24 20:29 Room Air 05/17/24 20:27 PG Care Time/CCT Total # of Minutes Spent Total Time Spent with Patient: Total time spent is greater than 50% in coordination of care (as documented) at patient's floor/unit and/or counseling patient: Coding Level of Care Code 95999 SUB INP/OBS CARE 2/35MIN Diagnoses Abdominal pain R10.9 Abdominal location: unspecified location Hypertension I10 Elevated troponin R79.89 Dementia F03.90 (1) Abdominal pain Abdominal location: unspecified location Qualified Code(s): R10.9 - Unspecified abdominal pain
[2024-05-18] MEDS: FAMOTIDINE 20 MG TAB PO SCH (09:00)
[2024-05-18] MEDS: VENLAFAXINE HCL XR 150 MG CAPXR PO SCH (09:00)
[2024-05-18] MEDS: METOPROLOL TARTRATE 25 MG TAB PO SCH (09:00)
[2024-05-18] MEDS: POLYETHYLENE (MIRALAX) 17 GM PACK PO SCH (09:01)
[2024-05-18] MEDS: PANTOprazole 40 MG TAB PO SCH (09:01)
[2024-05-18] MEDS: HEPARIN SOD 5,000 UNIT/0.5 ML VIAL SQ SCH (09:01)
[2024-05-18] MEDS: busPIRone 5 MG TAB PO SCH ×2 (09:06→19:14)
[2024-05-18] MEDS: MoRPHine SULFATE 4 MG/ML 1 ML CARP\\VIAL IV PRN (10:41)
[2024-05-18] MEDS: POLYETHYLENE (MIRALAX) 17 GM PACK PO ONE (14:52)
[2024-05-18] MEDS: ACETAMINOPHEN 325 MG TAB PO PRN (17:59)
[2024-05-18] MEDS: MIRTAZAPINE TAB 15 MG TAB PO SCH (20:40)
--- NOTE | 2024-05-18 21:18 | Billing Data ---
Date of Service May 18, 2024 Coding Level of Care Code 09882 INT INP/OBS CARE
[2024-05-19] MEDS: OLANZapine 10 MG/2.1 ML SDV IM STA (01:33)
[2024-05-19 06:22] LABS: Basophils # (auto) 0.04 K/uL (0.00-0.20); Basophils % (auto) 0.2 %; Eosinophils # (auto) 0.04 K/uL (0.00-0.50); Eosinophils % (auto) 0.2 %; Hematocrit (blood only) 34.9 % (37.0-47.0); Hemoglobin 11.4 g/dl (12.0-16.0); Immature Granulocytes # (auto) 0.09 K/uL (0.01-0.20); Immature Granulocytes % (auto) 0.5 %; Lymphocytes # (auto) 1.35 K/uL (1.20-3.40); Lymphocytes % (auto) 8.2 %; Mean Corpuscular Hemoglobin 27.1 pg (25.0-34.0); Mean Corpuscular Hgb Conc 32.7 g/dL (32.0-36.0); Mean Corpuscular Volume 83.1 fL (80.0-100.0); Mean Platelet Volume 10.8 fL (9.4-12.4); Monocytes # (auto) 1.25 K/uL (0.11-0.59); Monocytes % (auto) 7.6 %; Neutrophils # (auto) 13.74 K/uL (1.40-6.50); Neutrophils % (auto) 83.3 %; Platelet Count 235 K/uL (130-400); RDW Coefficient of Variation 15.2 % (11.5-14.5); RDW Standard Deviation 46.4 fL (36.4-46.3); White Blood Count 16.51 K/ul (4.8-10.8)
[2024-05-19 06:36] LABS: BUN Creatinine Ratio 17.2 (10-20); Calcium 8.7 mg/dl (8.6-10.3); Creatinine Clr Calc Pharmacy 34.5 ml/min; Est GFR (African American) 58.6 ml/min; Est GFR (Non-African American) 50.5 ml/min; Potassium 3.9 mmol/L (3.5-5.1)
[2024-05-19 06:43] LABS: Troponin I High Sensitivity 24.3 pg/ml (0-14)
--- NOTE | 2024-05-19 06:54 | Electrocardiogram Report ---
Test Reason : Blood Pressure : / mmHG Vent. Rate : 069 BPM Atrial Rate : 069 BPM P-R Int : 154 ms QRS Dur : 082 ms QT Int : 420 ms P-R-T Axes : 046 022 046 degrees QTc Int : 450 ms Sinus rhythm with Premature atrial complexes Otherwise normal ECG When compared with ECG of 12-DEC-2017 09:15, Premature atrial complexes are now Present Confirmed by Rory Stratton ([id number]) on 05/19/2024 6:53:59 AM Referred By: [facility] Confirmed By:Rory Stratton
[2024-05-19] MEDS: POLYETHYLENE (MIRALAX) 17 GM PACK PO SCH (07:50)
[2024-05-19 08:17] LABS: Estimated Average Glucose 143 mg/dl; Hemoglobin A1C 6.6 % (4.5-5.6)
[2024-05-19] MEDS: GLYCERIN ADULT 12 SUPP/BOX SUPP PR ONE (09:08)
[2024-05-19] MEDS: PIPER/TAZO 4.5g in D5W MINI-B 100 ML IV ONE (10:18)
--- NOTE | 2024-05-19 17:06 | Hospitalist Progress Note ---
Date of Service May 19, 2024 Assessment & Plan (1) Abdominal pain: Plan: Diverticulitis/Colitis,possible stercoral colitis - Leukocytosis, Zosyn therapy, did have good bowel movement 05/19 constipation contributing, now improved -ua will be also sent for culture, results pending (2) Hypertension: Plan: chronic and stable continue metoprolol (3) Elevated troponin: Plan: troponin 17->40->33 ECG nsr no acute changes suspect demand ischemia from illness (4) Dementia: Plan: with depression/ anxiety - continue venlafaxine and mirtazapine and buspirone Plan bilateral calf pain - Doppler US venous, bilateral ordered, pending Code status: DNR/DNI Admission and Anticipated Discharge Date Admission Date: May 17, 2024 Subjective pt is pleasantly confused does not like her abdomen examined family at the bedside and updated Physical Exam Physical Exam: oriented to person abd is NABS soft, uncomfortable to exam ext without edema Results & Data Results & Data Vital Signs (Past 12 Hours) Vital Signs Temp Pulse Pulse Resp BP Pulse Ox O2 Del Method 05/19/24 15:04 98.6 F 71 18 119/70 93 Room Air 05/19/24 11:12 98.2 F 81 18 137/81 93 Room Air 05/19/24 08:30 Room Air 05/19/24 07:21 98.6 F 66 18 122/66 93 Room Air 05/19/24 07:00 67 Laboratory Results reviewed cbc reviewed chemistry PG Care Time/CCT Total # of Minutes Spent Total Time Spent with Patient: Total time spent is greater than 50% in coordination of care (as documented) at patient's floor/unit and/or counseling patient: Coding Level of Care Code 24349 SUB INP/OBS CARE 2/35MIN Diagnoses Abdominal pain R10.30 Abdominal location: lower abdomen, unspecified Hypertension I10 Elevated troponin R79.89 Dementia F03.90 (1) Abdominal pain Abdominal location: lower abdomen, unspecified Qualified Code(s): R10.30 - Lower abdominal pain, unspecified
[2024-05-19] MEDS: PIPERACILLIN/TAZOBACTAM 4.5 GM in DEXTROSE 5% MINI-B 100 ML IV SCH (17:27)
[2024-05-20 07:50] LABS: Basophils # (auto) 0.04 K/uL (0.00-0.20); Basophils % (auto) 0.4 %; Eosinophils # (auto) 0.38 K/uL (0.00-0.50); Eosinophils % (auto) 3.4 %; Hematocrit (blood only) 32.2 % (37.0-47.0); Hemoglobin 10.9 g/dl (12.0-16.0); Immature Granulocytes # (auto) 0.05 K/uL (0.01-0.20); Immature Granulocytes % (auto) 0.4 %; Lymphocytes # (auto) 1.73 K/uL (1.20-3.40); Lymphocytes % (auto) 15.3 %; Mean Corpuscular Hemoglobin 27.7 pg (25.0-34.0); Mean Corpuscular Hgb Conc 33.9 g/dL (32.0-36.0); Mean Corpuscular Volume 81.7 fL (80.0-100.0); Mean Platelet Volume 10.2 fL (9.4-12.4); Monocytes # (auto) 0.93 K/uL (0.11-0.59); Monocytes % (auto) 8.2 %; Neutrophils # (auto) 8.15 K/uL (1.40-6.50); Neutrophils % (auto) 72.3 %; Platelet Count 242 K/uL (130-400); RDW Coefficient of Variation 15.3 % (11.5-14.5); RDW Standard Deviation 46.3 fL (36.4-46.3); Red Blood Count 3.94 M/uL (4.20-5.40); White Blood Count 11.28 K/ul (4.8-10.8)
[2024-05-20 08:13] LABS: BUN Creatinine Ratio 13.2 (10-20); Calcium 8.7 mg/dl (8.6-10.3); Creatinine Clr Calc Pharmacy 27.6 ml/min; Est GFR (African American) 45.9 ml/min; Est GFR (Non-African American) 39.6 ml/min; Potassium 3.5 mmol/L (3.5-5.1)
--- NOTE | 2024-05-20 18:19 | Hospitalist Progress Note ---
Date of Service May 20, 2024 Assessment & Plan (1) Abdominal pain: Plan: Diverticulitis/Colitis,possible stercoral colitis - Leukocytosis, Zosyn therapy, did have good bowel movement 05/19 improving constipation contributing, now improved -ua will be also sent for culture, results less than thousand colonies (2) Hypertension: Plan: chronic and stable continue metoprolol (3) Elevated troponin: Plan: troponin 17->40->33 ECG nsr no acute changes suspect demand ischemia from illness (4) Dementia: Plan: with depression/ anxiety - continue venlafaxine and mirtazapine and buspirone Plan bilateral calf pain - Doppler US venous, bilateral ordered, pending Incidentally noted mild rise in creatinine will follow to see if patient is with decreased p.o. intake very little if any medications are noted Code status: DNR/DNI Admission and Anticipated Discharge Date Admission Date: May 17, 2024 Subjective pt is pleasantly confused seems somewhat improved on 05/20/2024 Abdomen less uncomfortable after large bowel movement and antibiotics Physical Exam Physical Exam: oriented to person abd is NABS soft, uncomfortable to exam ext without edema Results & Data Results & Data Vital Signs (Past 12 Hours) Vital Signs Temp Pulse Pulse Resp BP Pulse Ox O2 Del Method 05/20/24 15:00 98.4 F 62 16 121/58 L 93 Room Air 05/20/24 13:55 57 L 05/20/24 11:03 98.2 F 66 16 107/68 93 Room Air 05/20/24 07:35 Room Air 05/20/24 07:35 05/20/24 07:24 97.9 F 62 16 128/56 L 93 Room Air 05/20/24 07:15 63 O2 Del Method 05/20/24 15:00 05/20/24 13:55 05/20/24 11:03 05/20/24 07:35 05/20/24 07:35 Room Air 05/20/24 07:24 05/20/24 07:15 Laboratory Results Reviewed CBC reviewed chemistryimproved leukocytosismild LONNY PG Care Time/CCT Total # of Minutes Spent Total Time Spent with Patient: Total time spent is greater than 50% in coordination of care (as documented) at patient's floor/unit and/or counseling patient: Coding Level of Care Code 85867 SUB INP/OBS CARE 2/35MIN Diagnoses Abdominal pain R10.30 Abdominal location: lower abdomen, unspecified Hypertension I10 Elevated troponin R79.89 Dementia F03.90 (1) Abdominal pain Abdominal location: lower abdomen, unspecified Qualified Code(s): R10.30 - Lower abdominal pain, unspecified
[2024-05-20] MEDS ORDERED: Nursing to Pharmacy Communication SCH (22:15)
[2024-05-21 07:39] LABS: BUN Creatinine Ratio 11.3 (10-20); Calcium 8.7 mg/dl (8.6-10.3); Creatinine Clr Calc Pharmacy 25.1 ml/min; Est GFR (Non-African American) 35.4 ml/min; Potassium 3.4 mmol/L (3.5-5.1)
[2024-05-21 08:09] LABS: Basophils # (auto) 0.04 K/uL (0.00-0.20); Basophils % (auto) 0.5 %; Eosinophils # (auto) 0.35 K/uL (0.00-0.50); Eosinophils % (auto) 4.8 %; Hematocrit (blood only) 36.5 % (37.0-47.0); Hemoglobin 12.1 g/dl (12.0-16.0); Immature Granulocytes # (auto) 0.05 K/uL (0.01-0.20); Immature Granulocytes % (auto) 0.7 %; Lymphocytes # (auto) 1.47 K/uL (1.20-3.40); Mean Corpuscular Hemoglobin 27.4 pg (25.0-34.0); Mean Corpuscular Hgb Conc 33.2 g/dL (32.0-36.0); Mean Corpuscular Volume 82.8 fL (80.0-100.0); Mean Platelet Volume 10.4 fL (9.4-12.4); Monocytes # (auto) 0.85 K/uL (0.11-0.59); Monocytes % (auto) 11.6 %; Neutrophils # (auto) 4.58 K/uL (1.40-6.50); Neutrophils % (auto) 62.4 %; Platelet Count 259 K/uL (130-400); RDW Coefficient of Variation 15.5 % (11.5-14.5); RDW Standard Deviation 47.2 fL (36.4-46.3); Red Blood Count 4.41 M/uL (4.20-5.40); White Blood Count 7.34 K/ul (4.8-10.8)
[2024-05-21 08:42] LABS: Appearance Urine Cloudy (Clear); Bacteria Urine Automated 1+ (None Seen); Bilirubin Urine Negative (Negative); Blood Urine 2+ (Negative); Color Urine Yellow; Glucose Urine UA Negative (Negative); Ketones Urine Trace (Negative); Leukocyte Esterase Urine 1+ (Negative); Nitrite Urine Negative (Negative); Protein Urine 2+ (Negative); Specific Gravity Urine > 1.045 (1.000-1.030); Urobilinogen Urine Negative (Negative); WBC Urine Automated 21-50 /hpf (0-5)
[2024-05-21 08:50] LABS: Uric Acid Crystals Urine Present (None Prsent)
[2024-05-21 08:51] LABS: Cast Urine Automated 0-2 /lpf (0-2)
--- NOTE | 2024-05-21 09:27 | Hospitalist Progress Note ---
Date of Service May 21, 2024 Assessment & Plan (1) Abdominal pain: Plan: Diverticulitis/Colitis, possible stercoral colitis - Leukocytosis of 14.5 on admission, resolved 05/21. - CT A/P on admission suspicious for colitis with constipation. No bowel perforation or abscess identified. - Continue Zosyn, last dose 05/23/24. - Constipation contributing, now improved > Did have good bowel movement 05/19. - Advanced diet to full liquids. UA on admission not infected. --> Repeated UA appeared infected 05/21. Urine culture pending. Incidentally noted mild rise in creatinine, will follow to see if patient is with decreased p.o. intake as very little if any medications are noted - Baseline creatinine around 1.1 - Cr 1.33 on 05/21 (2) Elevated troponin: Plan: Mildly elevated troponin 17->40->33 - ECG: NSR, no acute changes - Suspect demand ischemia from illness (3) Calf pain: Plan: Patient reported bilateral calf pain - Bilateral venous Doppler US showed no evidence of DVT bilaterally. Plan Repleted K Advanced diet to full liquids Chronic stable conditions: Hypertension: Continue metoprolol Depression/anxiety: Continue venlafaxine, buspirone, mirtazapine GERD: Continue famotidine, Protonix VTE PPx: Heparin SQ every 12 hours CODE STATUS: DNR/DNI Admission and Anticipated Discharge Date Admission Date: May 17, 2024 Supervising Physician Co-Signing Physician Notes Attending Attestation - Chart reviewed, care plan d/w SAUL Thomas. I agree w/ the sharpe components of her documentation. Bobby Brantley MD Subjective Patient seen and evaluated at bedside. She is pleasantly confused; she is oriented to person and place, but not oriented to time or event. She reports that her abdominal pain is improved, with just minimal epigastric tenderness on palpation at this time. She did have a large bowel movement yesterday, 05/20. She has no additional complaints or concerns at this time. Physical Exam Physical Exam: General: No acute distress, nondiaphoretic, well-developed, well-nourished. Skin: The skin was without rashes, erythema, edema, or bruising. Cardiac: Regular rate and rhythm without murmurs gallops or rubs. Pulm: Clear to auscultation bilaterally without wheezes, rales or rhonchi. No respiratory distress. 96% on room air. Abdominal: Soft, nondistended. Minimal epigastric tenderness to palpation. Bowel sounds present. Neuro: Alert and oriented to person and place, not oriented to time or event. No focal neurological deficits. Results & Data Results & Data Vital Signs (Past 12 Hours) Vital Signs Temp Pulse Pulse Resp BP Pulse Ox O2 Del Method 05/21/24 07:36 36.5 C 64 16 122/67 94 Room Air 05/21/24 04:00 36.9 C 60 16 131/64 95 Room Air 05/20/24 23:17 36.8 C 61 16 124/66 95 Room Air 05/20/24 21:56 56 L Laboratory Results Reviewed CBC Reviewed BMP Reviewed UA PG Care Time/CCT Total # of Minutes Spent Total Time Spent with Patient: Total time spent is greater than 50% in coordination of care (as documented) at patient's floor/unit and/or counseling patient: Coding Level of Care Code 28113 SUB INP/OBS CARE 2/35MIN Diagnoses Abdominal pain R10.30 Abdominal location: lower abdomen, unspecified Elevated troponin R79.89 Calf pain M79.669 (1) Abdominal pain Abdominal location: lower abdomen, unspecified Qualified Code(s): R10.30 - Lower abdominal pain, unspecified
[2024-05-21] MEDS: POTASSIUM CHLORIDE CRTAB 20 MEQ TABCR PO STA (10:31)
[2024-05-22 08:50] LABS: Basophils # (auto) 0.04 K/uL (0.00-0.20); Basophils % (auto) 0.6 %; Eosinophils # (auto) 0.35 K/uL (0.00-0.50); Eosinophils % (auto) 5.2 %; Hematocrit (blood only) 36.6 % (37.0-47.0); Hemoglobin 11.9 g/dl (12.0-16.0); Immature Granulocytes # (auto) 0.02 K/uL (0.01-0.20); Immature Granulocytes % (auto) 0.3 %; Lymphocytes # (auto) 1.69 K/uL (1.20-3.40); Lymphocytes % (auto) 25.3 %; Mean Corpuscular Hemoglobin 26.9 pg (25.0-34.0); Mean Corpuscular Hgb Conc 32.5 g/dL (32.0-36.0); Mean Corpuscular Volume 82.8 fL (80.0-100.0); Mean Platelet Volume 9.5 fL (9.4-12.4); Monocytes # (auto) 0.85 K/uL (0.11-0.59); Monocytes % (auto) 12.7 %; Neutrophils # (auto) 3.73 K/uL (1.40-6.50); Neutrophils % (auto) 55.9 %; Platelet Count 319 K/uL (130-400); RDW Coefficient of Variation 15.1 % (11.5-14.5); RDW Standard Deviation 46.2 fL (36.4-46.3); Red Blood Count 4.42 M/uL (4.20-5.40); White Blood Count 6.68 K/ul (4.8-10.8)
[2024-05-22 09:06] LABS: BUN Creatinine Ratio 9.5 (10-20); Creatinine Clr Calc Pharmacy 28.7 ml/min; Est GFR (African American) 48.3 ml/min; Est GFR (Non-African American) 41.7 ml/min; Potassium 3.5 mmol/L (3.5-5.1)
--- NOTE | 2024-05-22 15:29 | Hospitalist Progress Note ---
Date of Service May 22, 2024 Assessment & Plan (1) Abdominal pain: Plan: Resolved. CT scan on admission was suspicious for colitis. She also had an element of constipation which has now resolved. Treated while hospitalized with intravenous Zosyn. (2) Elevated troponin: Plan: Mild. No chest pain. No acute EKG changes. This most likely represents demand ischemia (3) Calf pain: Plan: Resolved. Bilateral venous Doppler studies are negative for DVT (4) Hypertension: Plan: Stable. Continue current medical management (5) Hypokalemia: Plan: Corrected. Serial labs Plan Probable return to [facility] tomorrow, May 23 Admission and Anticipated Discharge Date Admission Date: May 17, 2024 Subjective Alert. She denies any abdominal pain stating that it has resolved. Family is in attendance. Diet has been advanced. Urine culture obtained May 19 is negative. Urine culture obtained May 21 is pending. [facility] Review of Systems 2 Review of Systems: Constitutional-no fever or chills ENT-no blurred vision, no double vision, no epistaxis, no sore throat Respiratory-no cough, no wheezing, no shortness of breath Cardiac-no palpitations, no chest pain, no syncope GI-no nausea, vomiting, diarrhea, melena, hematochezia -no urinary retention, no urinary incontinence, no dysuria, no hematuria Musculoskeletal-no joint pain, no muscle tenderness Skin-no bruising, no rashes, no pruritus Neuro-no isolated weakness, no paresthesia, no weakness Psych-no depression, no anxiety Physical Exam 2 Physical Exam: General-alert and oriented x3, no fever, no chills HEENT-head atraumatic and normocephalic, pupils equal and reactive to light, extraocular muscles intact Neck-no lymphadenopathy or thyromegaly, trachea midline Chest-clear to auscultation. No rales, wheezing or rhonchi Cardiac-regular rate and rhythm, normal S1 and S2 Abdomen-normal bowel sounds, no hepatosplenomegaly. No tenderness to palpation Extremities-no cyanosis, clubbing, or edema Neuro-cranial nerves II through XII intact, motor and sensory function within normal limits, strength symmetrical and consistent with age, no focal deficits Psych-normal affect, normal mood Results & Data Results & Data Vital Signs (Past 12 Hours) Vital Signs Temp Pulse Pulse Resp BP BP Pulse Ox 08/04/24 15:00 73 05/22/24 13:15 36.8 C 62 18 158/86 H 96 05/22/24 08:06 36.4 C L 65 17 144/82 H 96 05/22/24 08:00 57 L 05/22/24 03:32 36.9 C 51 L 18 110/69 94 O2 Del Method 05/22/24 15:00 05/22/24 13:15 Room Air 05/22/24 08:06 Room Air 05/22/24 08:00 05/22/24 03:32 Room Air Laboratory Results 05/22/24 08:36 05/22/24 08:36 PG Care Time/CCT Total # of Minutes Spent Total Time Spent with Patient: Total time spent is greater than 50% in coordination of care (as documented) at patient's floor/unit and/or counseling patient: Coding Level of Care Code 95916 SUB INP/OBS CARE 3/50MIN Diagnoses Abdominal pain R10.30 Abdominal location: lower abdomen, unspecified Elevated troponin R79.89 Calf pain M79.669 Hypertension I10 Hypokalemia E87.6 (1) Abdominal pain Abdominal location: lower abdomen, unspecified Qualified Code(s): R10.30 - Lower abdominal pain, unspecified
[2024-05-23 06:53] LABS: Basophils # (auto) 0.04 K/uL (0.00-0.20); Basophils % (auto) 0.5 %; Eosinophils # (auto) 0.39 K/uL (0.00-0.50); Eosinophils % (auto) 5.3 %; Hematocrit (blood only) 33.3 % (37.0-47.0); Hemoglobin 11.1 g/dl (12.0-16.0); Immature Granulocytes # (auto) 0.06 K/uL (0.01-0.20); Immature Granulocytes % (auto) 0.8 %; Lymphocytes # (auto) 2.05 K/uL (1.20-3.40); Mean Corpuscular Hemoglobin 27.8 pg (25.0-34.0); Mean Corpuscular Hgb Conc 33.3 g/dL (32.0-36.0); Mean Corpuscular Volume 83.5 fL (80.0-100.0); Mean Platelet Volume 9.8 fL (9.4-12.4); Monocytes # (auto) 1.07 K/uL (0.11-0.59); Monocytes % (auto) 14.6 %; Neutrophils # (auto) 3.72 K/uL (1.40-6.50); Neutrophils % (auto) 50.8 %; Platelet Count 306 K/uL (130-400); RDW Coefficient of Variation 15.2 % (11.5-14.5); RDW Standard Deviation 46.2 fL (36.4-46.3); Red Blood Count 3.99 M/uL (4.20-5.40); White Blood Count 7.33 K/ul (4.8-10.8)
[2024-05-23 07:16] LABS: BUN Creatinine Ratio 8.4 (10-20); Calcium 8.8 mg/dl (8.6-10.3); Creatinine Clr Calc Pharmacy 27.9 ml/min; Est GFR (African American) 46.9 ml/min; Est GFR (Non-African American) 40.4 ml/min; Potassium 3.1 mmol/L (3.5-5.1)
--- NOTE | 2024-05-23 12:45 | Discharge Summary ---
Discharge Summary Date of Service May 23, 2024 Principal Dx & Hospital Course #1 = Principal Diagnosis (1) Abdominal pain: Resolved. CT scan on admission was suspicious for colitis. She also had an element of constipation which has now resolved. Treated while hospitalized with intravenous Zosyn. (2) Elevated troponin: Mild. No chest pain. No acute EKG changes. This most likely represents demand ischemia (3) Calf pain: Resolved. Bilateral venous Doppler studies are negative for DVT (4) Hypertension: Stable. Continue current medical management (5) Hypokalemia: Corrected. Serial labs Plan Discharge to [place] care today, May 23 Admission HPI Per Admitting Provider Patient is a 88 yo F w/ a PMHx of anxiety/depression, HTN, HLD, secondary parkinsonism, dementia, GERD, Hx of diverticulitis, adult failure to thrive currently living at [facility] who presented to [facility] ED with concerns for abdominal pain. Patient denies nausea, vomiting, diarrhea but does endorse constipation. Patient also denies any blood in the stools. Patient's last BM was late afternoon yesterday, and since that time has had decreased oral intake although she has been able to eat a little at each meal. Patient unable to recall whether she has felt this type of pain before, and whether it's similar to previous acute diverticulitis pain. Discharge Exam General-alert and oriented x3, no fever, no chills HEENT-head atraumatic and normocephalic, pupils equal and reactive to light, extraocular muscles intact Neck-no lymphadenopathy or thyromegaly, trachea midline Chest-clear to auscultation. No rales, wheezing or rhonchi Cardiac-regular rate and rhythm, normal S1 and S2 Abdomen-normal bowel sounds, no hepatosplenomegaly. No tenderness to palpation Extremities-no cyanosis, clubbing, or edema Neuro-cranial nerves II through XII intact, motor and sensory function within normal limits, strength symmetrical and consistent with age, no focal deficits Psych-normal affect, normal mood Updated Medication List Medication Instructions Recorded Confirmed Type aspirin 81 mg tablet,delayed 81 mg PO QAM 07/03/20 05/17/24 History release metoprolol tartrate 25 mg tablet 12.5 mg PO BIDM 07/03/20 05/17/24 History venlafaxine 150 mg 150 mg PO QAM 07/03/20 05/17/24 History capsule,extended release 24 hr acetaminophen 325 mg tablet 650 mg PO Q6H PRN PAIN/FEVER 05/22/23 05/17/24 History (Tylenol) aluminum-mag hydroxide-simethicone 30 ml PO Q6H PRN Dyspepsia 05/22/23 05/17/24 History 400 mg-400 mg-40 mg/5 mL oral susp (Maalox Maximum Strength) buspirone 10 mg tablet 10 mg PO DAILY@1630 05/22/23 05/17/24 History buspirone 5 mg tablet 5 mg PO AMHS 05/22/23 05/17/24 History docusate sodium 100 mg tablet 200 mg PO HS 05/22/23 05/17/24 History famotidine 20 mg tablet 20 mg PO BID 05/22/23 05/17/24 History pantoprazole 40 mg tablet,delayed 40 mg PO DAILY 05/22/23 05/17/24 History release mirtazapine 15 mg tablet 15 mg PO HS 05/17/24 05/17/24 History potassium chloride 10 mEq 10 meq PO BID #20 tabs 05/23/24 Rx tablet,extended release(part/cryst) Hospital Stay Data Consultations 05/17/24 22:03 ED Decision to Admit Stat Diagnostic Imagining Performed 05/17/24 18:11 CT abd pelvis IV con only Stat 05/18/24 US venous doppler LE BI Stat Pending Results Patient Have Any Pending Studies at Discharge: No Discharge Instructions Given to Patient (Per Discharging Provider) Potassium has been added to your medications to prevent low potassium levels Total Time Total Time Spent Total Time Spent (In Minutes): 45 minutes Coding Level of Care Code 88872 INP/OBS DISCH >30 MIN Diagnoses Abdominal pain R10.30 Abdominal location: lower abdomen, unspecified Elevated troponin R79.89 Calf pain M79.669 Hypertension I10 Hypokalemia E87.6
[2024-05-23] MEDS: POTASSIUM CHLORIDE CRTAB 20 MEQ TABCR PO STA (13:00)
[2024-05-23] MEDS ORDERED: POTASSIUM CHLORIDE 10 MEQ TABCR PO SCH (21:00)
== END 2024-05-23 14:33 | DRG 392 ==
LOC: ED 18:02 → SUATTDRO 23:56 → EDINP 23:56 → 2W 05-18 01:30 → 2N 05-22 22:56